=== PATIENT | male | born 1965 | race Two or more races ===

== ENCOUNTER 2022-01-24 17:01 | Inpatient (IN) | payer MEDICAID, OTHER ==
[~2022-01-24] VITALS: Ht 180.3 cm; Wt 77.9 kg
[2022-01-24] MEDS: POTASSIUM CHL 10MEQ/50ML 50 ML IV SCH (01:10)
[2022-01-24] MEDS ORDERED: KETOROLAC TROMETH 30 MG/ML 1ML VIAL IV ONE (20:00)
[2022-01-24 20:29] LABS: Basophils # (auto) 0.1 10 ^3/uL (0-0.2); Monocytes # (auto) 0.4 10 ^3/uL (0-1.3); Neutrophils # (auto) 3.7 10 ^3/uL (1.6-8.6); White Blood Cell 5.1 10^3/uL (4.4-10.8)
[2022-01-24 20:30] LABS: Basophils % (auto) 1.5 % (0.0-2.0); Eosinophils # (auto) 0.1 10 ^3/uL (0-0.8); Eosinophils % (auto) 1.2 % (0.0-7.0); Hematocrit 30.5 % (41.0-53.0); Lymphocytes # (auto) 0.9 10 ^3/uL (0.4-5.4); Lymphocytes % (auto) 16.8 % (10.0-50.0); Mean Corpuscular Hemoglobin 24.5 pg (28.0-32.0); Mean Corpuscular Hgb Conc. 32.6 g/dL (32.0-36.0); Mean Corpuscular Volume 75.2 fL (80.0-100.0); Monocytes % (auto) 7.6 % (0.0-12.0); Neutrophils % (auto) 72.9 % (37.0-80.0); Red Blood Cells 4.06 10^6/uL (4.5-5.90); Red Cell Distribution Width 16.7 % (11.8-14.3)
[2022-01-24 20:41] LABS: Albumin 3.3 g/dL (3.4-5.0); Calcium 7.6 mg/dL (8.5-10.1); Potassium 3.1 mmol/L (3.5-5.1)
[2022-01-24 20:47] LABS: BUN/Creatinine Ratio 12.8; Bilirubin, Total 0.6 mg/dL (0.2-1.0); Total Protein 6.6 g/dL (6.4-8.2)
[2022-01-24] MEDS ORDERED: LACTATED RINGER'S 1,000 ML IV ONE (22:15)
[2022-01-24] MEDS ORDERED: POTASSIUM EFFERVESENT TAB 25 MEQ PO ONE (22:15)
[2022-01-24] MEDS ORDERED: POTASSIUM CHL 10MEQ/50ML 50 ML IV SCH (22:15)
[2022-01-24] MEDS ORDERED: ONDANSETRON HCL 4 MG/2 ML VIAL IV PRN (23:15)
[2022-01-24] MEDS ORDERED: MORPHINE SULFATE 4 MG/ML SYR/VIAL IV PRN (23:15)
[2022-01-24] MEDS ORDERED: ACETAMINOPHEN 325 MG TAB PO PRN (23:15)
[2022-01-24] MEDS ORDERED: DOCUSATE SOD 100 MG CAP PO PRN (23:15)
[2022-01-24] MEDS ORDERED: TEMAZEPAM 15 MG CAP PO PRN (23:45)
[2022-01-25] MEDS ORDERED: hydrALAZINE HCL 20 MG/ML VL IV PRN ×2 (00:30)
[2022-01-25] MEDS: POTASSIUM CHL 10MEQ/50ML 50 ML IV SCH ×6 (01:10→05:37)
[2022-01-25] MEDS: SODIUM CHLORIDE 0.9% 1,000 ML IV SCH ×3 (01:27→15:55)
[2022-01-25 05:00] VITALS: BP 156/91
[2022-01-25] MEDS ORDERED: ESCI-28 PO (05:19)
[2022-01-25] MEDS ORDERED: ALLO300T2 PO (05:19)
[2022-01-25] MEDS ORDERED: TRAZ1TAB12 PO (05:19)
[2022-01-25] MEDS ORDERED: AMLO-489 PO (05:19)
[2022-01-25] MEDS ORDERED: LEV25T PO (05:19)
[2022-01-25] MEDS ORDERED: ARIP10TA29 PO (05:22)
[2022-01-25 06:24] LABS: Basophils # (auto) 0.1 10 ^3/uL (0-0.2); Eosinophils # (auto) 0.2 10 ^3/uL (0-0.8); Hemoglobin 10.7 g/dL (13.5-17.5); Lymphocytes # (auto) 1.6 10 ^3/uL (0.4-5.4); Monocytes # (auto) 0.4 10 ^3/uL (0-1.3); Neutrophils # (auto) 2.7 10 ^3/uL (1.6-8.6); Neutrophils % (auto) 54.1 % (37.0-80.0); Nucleated Red Blood Cells % 0.1 %; Red Cell Distribution Width 16.9 % (11.8-14.3)
[2022-01-25 06:26] LABS: Basophils % (auto) 1.3 % (0.0-2.0); Eosinophils % (auto) 4.1 % (0.0-7.0); Lymphocytes % (auto) 31.5 % (10.0-50.0); Mean Corpuscular Hemoglobin 24.2 pg (28.0-32.0); Mean Corpuscular Hgb Conc. 32.4 g/dL (32.0-36.0); Mean Corpuscular Volume 74.7 fL (80.0-100.0); Red Blood Cells 4.42 10^6/uL (4.5-5.90)
[2022-01-25 06:37] LABS: Albumin 3.4 g/dL (3.4-5.0); Calcium 8.6 mg/dL (8.5-10.1); Potassium 3.5 mmol/L (3.5-5.1)
[2022-01-25 06:41] LABS: BUN/Creatinine Ratio 10.6; Bilirubin, Total 0.7 mg/dL (0.2-1.0); Total Protein 7.2 g/dL (6.4-8.2)
[2022-01-25 08:54] VITALS: BP 138/83
[2022-01-25] MEDS: amLODIPine BESYLATE 5 MG TAB PO SCH (11:11)
[2022-01-25] MEDS: HYDROcodone-ACET 5/325MG TAB PO PRN ×2 (11:12→20:19)
[2022-01-25] MEDS: FAMOTIDINE 20 MG TAB PO SCH (11:13)
[2022-01-25 13:00] VITALS: BP 140/84
[2022-01-25 17:00] VITALS: BP 153/96
[2022-01-25] MEDS ORDERED: LORazepam 2MG/ML-1ML VIAL IV PRN (20:00)
[2022-01-25 22:00] VITALS: BP 142/94
[2022-01-26 00:12] VITALS: BP_SYST 123; BP_SYST 125; BP_SYST 127; BP_DIAS 79; BP_DIAS 89; BP_DIAS 94
[2022-01-26] MEDS: SODIUM CHLORIDE 0.9% 1,000 ML IV SCH ×2 (00:15→08:35)
[2022-01-26 05:00] VITALS: BP_SYST 121; BP_SYST 122; BP_SYST 144; BP_DIAS 77; BP_DIAS 84; BP_DIAS 89
[2022-01-26 09:00] VITALS: BP_SYST 135; BP_SYST 93; BP_DIAS 63; BP_DIAS 81; BP_DIAS 82
[2022-01-26] MEDS: amLODIPine BESYLATE 5 MG TAB PO SCH (10:00)
[2022-01-26] MEDS: FAMOTIDINE 20 MG TAB PO SCH (10:41)
[2022-01-26] MEDS ORDERED: MIDO5TAB22 PO (11:05)
[2022-01-26] MEDS ORDERED: MIDODRINE HCL 10 MG TAB PO SCH (11:19)
[2022-01-26 13:00] VITALS: BP_SYST 119; BP_SYST 156; BP_SYST 158; BP_DIAS 85; BP_DIAS 90
[2022-01-26 13:26] LABS: Folate (Folic Acid) 9.19 ng/mL (5.38-24)
[2022-01-26 15:20] VITALS: BP 135/82
[2022-01-26 16:00] VITALS: BP_SYST 131; BP_SYST 136; BP_SYST 159; BP_DIAS 92; BP_DIAS 98; BP_DIAS 99
== END 2022-01-26 16:30 | disposition home health service (06) | DRG 204 ==
LOC: ER 17:03 → TELE 23:14 → TELE-WESTW 23:48
PROVIDERS: ADMIT Internal Medicine; ATTEND Internal Medicine
DX: I95.1 Orthostatic hypotension (principal); E11.42 Type 2 diabetes mellitus with diabetic polyneuropathy; E88.09 Other disorders of plasma-protein metabolism, not elsewhere classified; E87.6 Hypokalemia; E03.9 Hypothyroidism, unspecified; W18.2XXA Fall in (into) shower or empty bathtub, initial encounter; R00.1 Bradycardia, unspecified; F32.A Depression, unspecified; F12.90 Cannabis use, unspecified, uncomplicated; F17.200 Nicotine dependence, unspecified, uncomplicated; Z20.822 Contact with and (suspected) exposure to COVID-19; F43.10 Post-traumatic stress disorder, unspecified; I10 Essential (primary) hypertension; I45.9 Conduction disorder, unspecified; F41.8 Other specified anxiety disorders; G89.29 Other chronic pain; M10.9 Gout, unspecified; M19.90 Unspecified osteoarthritis, unspecified site; M54.9 Dorsalgia, unspecified; M54.50 Low back pain, unspecified; Y92.009 Unspecified place in unspecified non-institutional (private) residence as the place of occurrence of the external cause; Y93.E1 Activity, personal bathing and showering; Z80.42 Family history of malignant neoplasm of prostate; Z81.8 Family history of other mental and behavioral disorders; Z82.3 Family history of stroke; Z82.49 Family history of ischemic heart disease and other diseases of the circulatory system; Z83.3 Family history of diabetes mellitus; Z98.84 Bariatric surgery status
CPT/HCPCS: 36415; 70450; 70551; 71045; 72125; 72170; 80053; 82607; 82746; 83036; 83735; 83880; 84443; 84484; 85025; 93005; 93306; 93886; 95819; 96361; 96374; 97163; G0378; J1885

== ENCOUNTER 2025-01-12 10:24 | Inpatient (IN) | payer MEDICAID ==
[~2025-01-12] VITALS: Ht 180.3 cm; Wt 65.0 kg
[~2025-01-12 10:24] MED LIST: ALLO300T2 PO; AUG875T PO; LEV25T PO; MIDO5TAB22 PO; MIRT-93 PO; QUET1TAB11 PO; TRAZ1TAB12 PO
--- NOTE | 2025-01-12 10:40 | ED.PDOC ---
History of Present Illness HPI Comments 59-year-old male who comes in with chief complaint of generalized weakness for the past five days. The patient was also experiencing some dizziness. The patient fell on the ground over the last couple of days and according to the paramedics, there was an EMS response yesterday and the day before. Upon arriv al, the patient was just very weak and not complaining of any chest pain, shortness for breath, nausea or vomiting. EN route the patient's Accu-Chek was 93. He is stating that he has no appetite. He denies any abdominal pain. Upon arrival, the patient's Accu-Chek is 69. Chief Complaint: General Weakness Time Seen by MD: 10:28 Primary Care Provider: JENNIFER Reviewed Notes: Nurses Notes, Clinical Research Administrator Notes, Medications, Allergies (No allergies to medications) Allergies: Coded Allergies: NO KNOWN ALLERGIES (Unverified , 01/24/22) Home Meds Active Scripts Mirtazapine (Remeron) 15 Mg Tab, 1 TAB PO QPM, #30 TAB 1 Refill Prov:KOBY CHAPMAN MD 02/03/24 Amoxicillin & Pot Clavulanate (AUGMENTIN TABLET) 875 Mg Tb, 875 MG PO BID for 7 Days, #14 TAB Prov:KOBY CHAPMAN MD 02/01/24 Quetiapine Fumerate (QUETIAPINE FUMARATE) 25 Mg Tab, 25 MG PO HS for 14 Days, #14 TAB 1 Refill Prov:KOBY CHAPMAN MD 02/01/24 Midodrine HCl (Midodrine Hydrochloride) 5 Mg Tab, 5 MG PO BID for 30 Days, #60 TAB Prov:KOBY CHAPMAN MD 01/26/22 Reported Medications Trazodone Hcl (Trazodone Hcl) 150 Mg Tab, 1 TAB PO for insomnia per pt 01/25/22 Allopurinol (Allopurinol) 300 Mg Tab, 1 TAB PO DAILYPRN for gout 01/25/22 Levothyroxine Sodium (Levothyroxine Sodium) 25 Mcg Tab, 1 TAB PO DAILYPRN 01/25/22 Information Source: Patient, Emergency Med Personnel Mode of Arrival: EMS Severity: Moderate Timing: Days Duration: Since onset Prehospital treatment: Accucheck (93) Associated signs and symptoms Generalized dizziness with weakness and decreased appetite. Past Medical History PAST MEDICAL HISTORY: Anxiety, Depression, Gout, HTN Family History Family History: Family hx of Cancer Social History Smoker: Non-Smoker Alcohol: Denies ETOH Use Drugs: Marijuana Lives In: Home Constitutional: reports: weakness; denies: chills, diaphoresis, fatigue, fever, malaise, sweats, others EENTM: denies: blurred vision, double vision, ear bleeding, ear discharge, ear drainage, ear pain, ear ringing, eye pain, eye redness, hearing loss, mouth pain, mouth swelling, nasal discharge, nose bleeding, nose congestion, nose pain, photophobia, tearing, throat pain, throat swelling, voice changes, others Respiratory: denies: cough, hemoptysis, orthopnea, SOB at rest, shortness of breath, SOB with excertion, stridor, wheezing, others Cardiovascular: denies: chest pain, dizzy spells, diaphoresis, Dyspnea on exertion, edema, irregular heart beat, left arm pain, lightheadedness, palpitations, PND, syncope, others Gastrointestinal: denies: abdomen distended, abdominal pain, blood streaked bowels, constipated, diarrhea, dysphagia, difficulty swallowing, hematemesis, melena, nausea, poor appetite, poor fluid intake, rectal bleeding, rectal pain, vomiting, others Genitourinary: denies: burning, dysuria, flank pain, frequency, hematuria, incontinence, penile discharge, penile sore, pain, testicle pain, testicle swelling, urgency, others Neurological: reports: dizziness; denies: fainting, headache, left sided numbness, left sided weakness, numbness, paresthesia, pre-existing deficit, right sided numbness, right sided weakness, seizure, speech problems, tingling, tremors, weakness, others Musculoskeletal: denies: back pain, gout, joint pain, joint swelling, muscle pain, muscle stiffness, neck pain, others Integumetry: denies: bruises, change in color, change in hair/nails, dryness, laceration, lesions, lumps, rash, wounds, others Allergic/Immunocompromised: denies: Difficulty Healing, Frequent Infections, Hives, Itching, others Hematologic/Lymphatic: denies: anemia, blood clots, easy bleeding, easy bruising, swollen glands, others Endocrine: denies: excessive hunger, excessive sweating, excessive thirst, excessive urination, flushing, intolerance to cold, intolerance to heat, unexplained weight gain, unexplained weight loss, others Psychiatric: denies: anxiety, bipolar disorder, depression, hopeless, panic disorder, schizophrenia, sleepless, suicidal, others Physical Exam General Appearance: Moderate Distress, Thin HEENT: Pale Conjuntivae (L), Pale Conjuntivae (R), Pharynx Normal, TMs Normal Neck: Full Range of Motion, Non-Tender, Normal, Normal Inspection Respiratory: Chest Non-Tender, Lungs Clear, No Accessory Muscle Use, No Re spiratory Distress, Normal Breath Sounds Cardiovascular: No Edema, No JVD, No Murmur, No Gallop, Normal Peripheral Pulses, Regular Rate/Rhythm Breast Exam: Deferred Gastrointestinal: No Organomegaly, Non Tender, No Pulsatile Mass, Normal Bowel Sounds, Soft Genitalia: Deferred Pelvic: Deferred Rectal: Deferred Extremities: No calf tenderness, Normal capillary refill, No pedal edema Musculoskeletal : Apperance: Normal Neurologic: Alert, pantograph watcher II-XII nml as Tested, Motor Weakness, Normal Affect, Normal Mood, No Sensory Deficits Cerebellar Function: Normal Reflexes: Normal Skin: Dry, Pallor, Warm Lymphatic: No Adenopathy Was a procedure done? Was a procedure done?: No Differential Dx Considerations may include: Generalized weakness, CVA, dehydration, UTI, failure to thrive X-Ray, Labs, Meds, VS Vital Signs Date Time Temp Pulse Resp B/P (MAP) Pulse Ox O2 Delivery O2 Flow Rate FiO2 01/12/25 15:00 62 14 156/81 (106) 100 01/12/25 11:58 58 12 159/88 (111) 100 01/12/25 10:37 97.2 64 16 150/92 (111) 100 Lab Test 01/12/25 10:54 01/12/25 10:50 Range/Units White Blood Count 3.3 L 4.4-10.8 10^3/uL Red Blood Count 4.04 L 4.5-5.90 10^6/uL Hemoglobin 12.2 L 13.5-17.5 g/dL Hematocrit 37.1 L 41.0-53.0 % Mean Corpuscular Volume 91.8 80.0-100.0 fL Mean Corpuscular Hemoglobin 30.2 28.0-32.0 pg Mean Corpuscular Hemoglobin Concent 32.8 32.0-36.0 g/dL Red Cell Distribution Width 17.4 H 11.8-14.3 % Platelet Count 109 L 140-450 10^3/uL Mean Platelet Volume 7.4 6.9-10.8 fL Neutrophils (%) (Auto) 66.2 37.0-80.0 % Lymphocytes (%) (Auto) 24.9 10.0-50.0 % Monocytes (%) (Auto) 6.2 0.0-12.0 % Eosinophils (%) (Auto) 2.3 0.0-7.0 % Basophils (%) (Auto) 0.4 0.0-2.0 % Neutrophils # (Auto) 2.2 1.6-8.6 10 ^3/uL Lymphocytes # (Auto) 0.8 0.4-5.4 10 ^3/uL Monocytes # (Auto) 0.2 0-1.3 10 ^3/uL Eosinophils # (Auto) 0.1 0-0.8 10 ^3/uL Basophils # (Auto) 0 0-0.2 10 ^3/uL Nucleated Red Blood Cells 0.2 % Sodium Level 141 136-145 mmol/L Potassium Level 3.3 L 3.5-5.1 mmol/L Chloride Level 103 98-107 mmol/L Carbon Dioxide Level 25 20-31 mmol/L Anion Gap 13 5-15 Blood Urea Nitrogen 20 9-23 mg/dL Creatinine 1.53 H 0.700-1.30 mg/dL Glomerular Filtration Rate Calc 52 >90 mL/min BUN/Creatinine Ratio 13.1 10.0-20.0 Serum Glucose 67 L 74-106 mg/dL Calcium Level 9.2 8.7-10.4 mg/dL Total Bilirubin 1.0 0.2-1.0 mg/dL Aspartate Amino Transferase (AST) 342 H 13-40 U/L Alanine Aminotransferase (ALT) 50 H 7-40 U/L Alkaline Phosphatase 57 46-116 U/L Total Protein 6.1 5.7-8.2 g/dL Albumin 3.4 3.2-4.8 g/dL SARS-CoV-2 Antigen (Rapid) Negative NEGATIVE Current Medications Medications (Trade) Dose Ordered Sig/Daphnie Route Start Time Stop Time Status Last Admin Sodium Chloride 1,000 ml @ 1,000 mls/hr Q1H ONCE IV 01/12/25 10:45 2/28/25 11:44 DC 01/12/25 14:32 IV Hep-Lock was established. The patient was given a 1 L bolus of normal saline. The Accu-Chek is [address] scan of the abdomen and pelvis shows: IMPRESSION: 1. No CT evidence of acute abnormality in the abdomen and pelvis. 2. Mild body wall edema. At this time the CBC is within normal limits At this time the patient will be admitted to the hospitalist. The COVID test is negative. The patient was leukopenia and we feel that this also needs to be worked up secondary to the patient's weakness and failure to thrive Images Reviewed?: Images reviewed and evaluated by me Time of 1ST Reevaluation: 10:54 Reevaluation 1ST: Improved Patient Education/Counseling: Diagnosis, Treatment, Prognosis Family Education/Counseling: No Family Present Departure 1 Departure Time of Disposition: 10:54 Impression: Primary Impression: Failure to thrive Qualified Codes: R62.7 - Adult failure to thrive Disposition: 09 ADMITTED INPATIENT Admit to: [facility] [place] Condition: Fair Critical Care Note Critical Care Time?: No Stability Stability form required: Yes Unstable for transfer: Telemetry monitoring (Telemetry monitoring required), ED Physician Assesment (Clinical assesment) Heart Score Heart Score: Heart Score Response (Comments) Value History N/A 0 EKG N/A 0 Age N/A 0 Risk Factors N/A 0 Troponin N/A 0 Total 0 CURTIS MCRAE MD Jan 12, 2025 10:40
[2025-01-12 11:15] LABS: Basophils # (auto) 0 10 ^3/uL (0-0.2); Basophils % (auto) 0.4 % (0.0-2.0); Eosinophils # (auto) 0.1 10 ^3/uL (0-0.8); Eosinophils % (auto) 2.3 % (0.0-7.0); Hematocrit 37.1 % (41.0-53.0); Hemoglobin 12.2 g/dL (13.5-17.5); Lymphocytes # (auto) 0.8 10 ^3/uL (0.4-5.4); Lymphocytes % (auto) 24.9 % (10.0-50.0); Mean Corpuscular Hemoglobin 30.2 pg (28.0-32.0); Mean Corpuscular Hgb Conc. 32.8 g/dL (32.0-36.0); Mean Corpuscular Volume 91.8 fL (80.0-100.0); Monocytes # (auto) 0.2 10 ^3/uL (0-1.3); Monocytes % (auto) 6.2 % (0.0-12.0); Neutrophils # (auto) 2.2 10 ^3/uL (1.6-8.6); Neutrophils % (auto) 66.2 % (37.0-80.0); Nucleated Red Blood Cells % 0.2 %; Platelet Count (auto) 109 10^3/uL (140-450); Red Blood Cells 4.04 10^6/uL (4.5-5.90); Red Cell Distribution Width 17.4 % (11.8-14.3); White Blood Cell 3.3 10^3/uL (4.4-10.8)
[2025-01-12 11:42] LABS: Albumin 3.4 g/dL (3.2-4.8); Alkaline Phosphatase 57 U/L (46-116); Anion Gap 13 (5-15); BUN/Creatinine Ratio 13.1 (10.0-20.0); Blood Urea Nitrogen 20 mg/dL (9-23); Calcium 9.2 mg/dL (8.7-10.4); Carbon Dioxide 25 mmol/L (20-31); Chloride 103 mmol/L (98-107); Sodium 141 mmol/L (136-145); Total Protein 6.1 g/dL (5.7-8.2)
--- NOTE | 2025-01-12 11:51 | DVH ---
Procedure: CT CT AB PEL WO CON-NO ORAL OR IV 01/12/2025 11:01 AM Indication: weakness Comparison Study: None Technique: Axial images were obtained and reformatted in coronal and sagittal planes. All CT scans at this medical facility are performed using dose modulation techniques as appropriate t o a performed exam including the following: Automated exposure control was utilized; adjustment of th e MA and/or KV according to patient size; and use of iterative reconstruction technique. CT Dose: CTDI volume is 5. mGy. Dose-length product is 280 mGy*cm FINDINGS: Lower Chest: Base of the lungs are clear. Suggestion of anemia. Hepatobiliary: Unremarkable. Spleen: Unremarkable. Pancreas: Unremarkable. Adrenal Glands: Unremarkable. tract: The kidneys are normal in size bilaterally without hydronephrosis or nephrolithiasis. A 4.5 cm right renal cyst noted. The urinary bladder is unremarkable. GI tract: Changes of gastric bypass surgery noted. No evidence of small bowel obstruction. The large bowel is unremarkable. The appendix is not visualized. No inflammatory change is noted in the right lower quadrant. Lymphatics: No mesenteric, retroperitoneal or periportal lymphadenopathy. Vasculature: The abdominal aorta is normal in in caliber. Pelvic Organs: Unremarkable Bones/soft tissues: No acute abnormality. Multilevel degenerative changes of the lumbar spine noted. Mild diffuse subcutaneous edema. Moderate bilateral hip joint osteoarthritis. Other: None. IMPRESSION: 1. No CT evidence of acute abnormality in the abdomen and pelvis. 2. Mild body wall edema.
[2025-01-12 11:55] LABS: Alanine Aminotransferase 50 U/L (7-40); Aspartate Aminotransferase 342 U/L (13-40); Glucose 67 mg/dL (74-106); Potassium 3.3 mmol/L (3.5-5.1)
[2025-01-12] MEDS: SODIUM CHLORIDE 0.9% 1,000 ML IV ONE (14:32)
[2025-01-12 15:12] LABS: COVID19 ANTIGEN SOFIA FIA NEGATIVE (NEGATIVE)
[2025-01-12 15:57] VITALS: PULSE 62; RESP 12; O2SAT 100
[2025-01-12] MEDS ORDERED: POTASSIUM CHLORIDE 40 MEQ in D5W 5% 1,000 ML IV SCH (16:15)
--- NOTE | 2025-01-12 16:41 | DVH ---
EXAM: CT HEAD WITHOUT CONTRAST HISTORY: aloc COMPARISON: CT HEAD WITHOUT CONTRAST on DOS: 01/28/24, HEAD WITHOUT CONTRAST on DOS: 01/24/22 TECHNIQUE: Axial images of the head were obtained and reformatted in coronal and sagittal planes. All CT scans at this medical facility are performed using dose modulation techniques as appropriate t o a performed exam including the following: Automated exposure control was utilized; adjustment of th e MA and/or KV according to patient size; and use of iterative reconstruction technique. CT Dose: CTDI volume is 55 mGy. Dose-length product is 886 mGy*cm FINDINGS: There is no evidence of acute intracranial hemorrhage, mass, mass effect midline shift. There is no h ydrocephalus or extra-axial fluid collection. Blue-white matter differentiation is maintained. The visualized paranasal sinuses and mastoid air cells are clear. The calvarium is intact. IMPRESSION: 1. No acute intracranial process. HS:Y
[2025-01-12] MEDS ORDERED: ONDANSETRON HCL 4 MG/2 ML VIAL IV PRN (18:00)
[2025-01-12] MEDS ORDERED: NITROGLYCERIN 0.4 MG SL TAB SL PRN (18:00)
[2025-01-12] MEDS ORDERED: HYDROcodone-ACET 5/325MG TAB PO PRN (18:00)
[2025-01-12] MEDS ORDERED: ACETAMINOPHEN 325 MG TAB PO PRN (18:00)
[2025-01-12] MEDS ORDERED: MORPHINE SULFATE INJ 2 MG/ml SYRG IV PRN ×2 (18:00)
[2025-01-12] MEDS: SODIUM CHLORIDE 0.9% 1,000 ML IV SCH (19:18)
[2025-01-12] MEDS: POTASSIUM CHL 20MEQ/100ML 100 ML IV ONE (19:18)
[2025-01-12 19:30] VITALS: PULSE 59; RESP 18; O2SAT 99
--- NOTE | 2025-01-12 21:05 | DVHINCON2 ---
Date of Service if different f: Jan 12, 2025 Time of Service: 20:43 Consultation ([facility]) Consulting Physician: ALEK CONCEPCION MD Labs Laboratory Tests Test 01/12/25 10:50 01/12/25 10:54 SARS-CoV-2 Antigen (Rapid) Negative (NEGATIVE) White Blood Count 3.3 10^3/uL (4.4-10.8) Red Blood Count 4.04 10^6/uL (4.5-5.90) Hemoglobin 12.2 g/dL (13.5-17.5) Hematocrit 37.1 % (41.0-53.0) Mean Corpuscular Volume 91.8 fL (80.0-100.0) Mean Corpuscular Hemoglobin 30.2 pg (28.0-32.0) Mean Corpuscular Hemoglobin Concent 32.8 g/dL (32.0-36.0) Red Cell Distribution Width 17.4 % (11.8-14.3) Platelet Count 109 10^3/uL (140-450) Mean Platelet Volume 7.4 fL (6.9-10.8) Neutrophils (%) (Auto) 66.2 % (37.0-80.0) Lymphocytes (%) (Auto) 24.9 % (10.0-50.0) Monocytes (%) (Auto) 6.2 % (0.0-12.0) Eosinophils (%) (Auto) 2.3 % (0.0-7.0) Basophils (%) (Auto) 0.4 % (0.0-2.0) Neutrophils # (Auto) 2.2 10 ^3/uL (1.6-8.6) Lymphocytes # (Auto) 0.8 10 ^3/uL (0.4-5.4) Monocytes # (Auto) 0.2 10 ^3/uL (0-1.3) Eosinophils # (Auto) 0.1 10 ^3/uL (0-0.8) Basophils # (Auto) 0 10 ^3/uL (0-0.2) Nucleated Red Blood Cells 0.2 % Sodium Level 141 mmol/L (136-145) Potassium Level 3.3 mmol/L (3.5-5.1) Chloride Level 103 mmol/L (98-107) Carbon Dioxide Level 25 mmol/L (20-31) Anion Gap 13 (5-15) Blood Urea Nitrogen 20 mg/dL (9-23) Creatinine 1.53 mg/dL (0.700-1.30) Glomerular Filtration Rate Calc 52 mL/min (>90) BUN/Creatinine Ratio 13.1 (10.0-20.0) Serum Glucose 67 mg/dL (74-106) Calcium Level 9.2 mg/dL (8.7-10.4) Total Bilirubin 1.0 mg/dL (0.2-1.0) Aspartate Amino Transf (AST/SGOT) 342 U/L (13-40) Alanine Aminotransferase (ALT/SGPT) 50 U/L (7-40) Alkaline Phosphatase 57 U/L (46-116) Total Protein 6.1 g/dL (5.7-8.2) Albumin 3.4 g/dL (3.2-4.8) Appearance: Stated age Psychomotor activity: WNL Behavioral: Cooperative Eye contact: Appropriate Speech: WNL Affect: Appropriate, Mood Congruent Mood: Euthymic Thought processes: Linear/Goal-directed Thought content: WNL Suicidal ideations: Absent Homicidal ideations: Absent Orientation: Person, Place, Time Memory intact: Recent Intellect: Average Abstractability: WNL Concentration: Adequate Attention: Adequate Judgement: WNL Insight: Fair Vitals Vital Signs Date Time Temp Pulse Resp B/P (MAP) Pulse Ox O2 Delivery O2 Flow Rate FiO2 01/12/25 20:00 59 01/12/25 19:30 18 99 Nasal Cannula* 2 28 01/12/25 19:30 98.5 161/88 (112) 98.5 Current medications Current Medications Medications Dose Ordered Sig/Daphnie Route Start Time Stop Time Status Last Admin Dose Admin Sodium Chloride 1,000 ml @ 120 mls/hr Q8H20M IV 01/12/25 18:00 01/12/25 19:18 120 MLS/HR Acetaminophen/ Hydrocodone Bitart 1 tab Q4HP PRN PO 01/12/25 18:00 Ondansetron HCl 4 mg Q4HP PRN IV 01/12/25 18:00 Enoxaparin Sodium 40 mg DAILY SC 01/13/25 10:00 Acetaminophen 650 mg Q6HP PRN PO 01/12/25 18:00 Morphine Sulfate 2 mg Q4HPRN PRN IV 01/12/25 18:00 Nitroglycerin 0.4 mg Q5MINP PRN SL 01/12/25 18:00 Morphine Sulfate 2 mg Q30M PRN IV 01/12/25 18:00 Hydralazine HCl 10 mg Q6HP PRN IV 01/12/25 20:15 Treatment plan discussed: With staff Medication adjusted: Yes Labs ordered: No Psychotherapy provided: No Type: Voluntary History of Present Illness Reason for Consult : psychiatric evaluation for depression PSYCHIATRIST HPI: The patient was seen and evaluated at [facility] ED via telepsychiatry platform. 59 yr old male reported he suffered from depression his whole life. He reported he has been doing well on his current medications which are vraylar and wellbutrin. He reported taking these regularly and seeing his outpatient psychiatrist on a monthly basis. He noted that he lives by himself and has a caregiver who helps him. He stated his mood has been good lately. he denied having SI/HI/AVH. Past Psychiatric History : Diagnosed with severe depression and anxiety. One suicide attempt several years ago. No past hospitalizations. Current psych medications: Welbutrin 300mg Vraylar 3mg qam. NKDA Past Medical History : orthostatic hypotension, hypothyroid Substance use: Denied use of alcohol or other substances Social History : Lives in [place] by self in apartment. Has a caregiver. for 7.5 yrs 13 years ago. No children. Worked in past but unemployed. DIAGNOSIS: Major Depressive Disorder Formulation: This 59 yr old male appears to suffer from major depressive disorder which has been well controlled on Wellbutrin and Vraylar. I recommend continuing on those medications. Plan: 1. Safety. The patient is a low risk for self harm and may be managed as an outpatient. 2. Legal-voluntary. 3. Medications: continue Wellbutrin 300mg qam Vraylar 3mg qam (if vraylar is unavailable, may substitute risperdal 1mg qhs) 4. Case discussed with ED Physician Ivan Sawyer. 5. Please recontact psychiatry for further follow up or reevaluation. Assessment/Diagnosis/Plan Reviewed: Labs, Medications, Previous Orders ALEK CONCEPCION MD Jan 12, 2025 20:44
[2025-01-12 21:24] LABS: Urine Bacteria None Seen /hpf (None Seen)
[2025-01-12 21:51] LABS: Amphetamine Screen, Urine Neg (NEGATIVE); Benzodiazephine Screen, Urine Neg (NEGATIVE)
[2025-01-12 21:52] LABS: Urine Blood Negative /uL (Negative); Urine Clarity Clear (Clear); Urine Color Yellow (Yellow); Urine Hyaline Cast FEW /lpf (0 - 2); Urine Protein, UAD Negative (Negative); Urine Specific Gravity 1.016 (1.001-1.035); Urine Squamous Epithelial Cell FEW /hpf (<5); Urine Urobilinogen 2 mg/dL (Negative); Urine WBC < 1 /HPF (0-3)
[2025-01-12 21:58] LABS: Barbiturate Scree,Urine Neg (NEGATIVE); Cannabinoid Screen, Urine Neg (NEGATIVE); Cocaine Screen, Urine Neg (NEGATIVE); Opiate Scree,Urine Neg (NEGATIVE); Phencyclidine Screen, Urine Neg (NEGATIVE)
[2025-01-12 22:36] VITALS: BP 160/92; PULSE 59; RESP 17; TEMP 97.5; O2SAT 100
[2025-01-12 22:43] VITALS: PULSE 59; RESP 17; O2SAT 100
[2025-01-12] MEDS ORDERED: TEMA30CA PO (23:29)
[2025-01-12] MEDS ORDERED: CARI1CAP4 PO (23:29)
[2025-01-13] VITALS (8 sets, daily range): BP systolic 122–169; BP diastolic 53–97; PULSE 57–76; RESP 16–19; TEMP 97.3–98.7; O2SAT 97–100
--- NOTE | 2025-01-13 00:57 | DVHHP2 ---
Admitting Diagnosis: Failure to Thrive History of Present Illness History Source: Patient Exam Limitations: No limitations HPI Mr. Donaldo Green is a 59 yo male with known history of major depression who presents with a chief complaint of generalized weakness and poor appetite. Eliud maldonado report he has been in bed for the past 5 days due to generalized weakness with poor appetite. Patient denies any suicidal ideation, ideation of harm to others. Patient reports he has a caregiver and he has been compliant with his medication regimen. Patient admitted for further evaluation. Home Meds Reported Medications Cariprazine HCl (Vraylar) 6 Mg Cap, 6 MG PO, CAP 01/12/25 Temazepam (Temazepam) 30 Mg Cap, 1 CAP PO QPM, #30 CAP 1 Refill 01/12/25 Trazodone Hcl (Trazodone Hcl) 150 Mg Tab, 1 TAB PO for insomnia per pt 01/25/22 Allopurinol (Allopurinol) 300 Mg Tab, 1 TAB PO DAILYPRN for gout 01/25/22 Levothyroxine Sodium (Levothyroxine Sodium) 25 Mcg Tab, 1 TAB PO DAILYPRN 01/25/22 Past Medical History Cardiac: No pertinent Hx Pulmonary: No pertinent Hx Central Nervous System: No pertinent Hx GI: No pertinent Hx Hemotology/Oncology: No pertinent Hx Hepatobiliary: No pertinent Hx Psychiatric: Depression, Other (failure to thrive) Musculoskeletal: No pertinent Hx Rheumotologic: No pertinent Hx Infectious Disease: No peritnent Hx ENT: No pertinent Hx Renal/: No pertinent Hx Endocrine: No pertinent Hx Dermatology: No pertinent Hx Patient Family History: Cerebrovascular accident (CVA) FH: prostate cancer G8 FATHER Prostate carcinoma Smoker: No Hx (Negative) Alocohol: None Drugs: None Lives with: Alone Domestic Violence: Neg Review of Systems Constitutional: Weakness (generalized ), Other (poor appetite ) Ears, Nose, & Throat: No symptom reported Eyes: No symptom reported Pulmonary/Respiratory: No symptom reported Cardiovascular: No symptom reported Gastrointestinal: No symptom reported Genitourinary: No symptom reported Musculoskeletal: No symptom reported Skin: No symptom reported Psychiatric: No symptom reported Endocrine: No symptom reported Hemotologic/Lymphatic: No symptom reported H&P Exam Vital Signs Vital Signs Date Time Temp Pulse Resp B/P (MAP) Pulse Ox O2 Delivery O2 Flow Rate FiO2 01/12/25 22:36 97.5 59 17 160/92 (114) 100 97.5 01/12/25 19:30 Nasal Cannula* 2 General Appeara: Normal Appearance, Thin Head Exam: Normal inspection Neck Exam: Normal inspection, Non-tender, Normal alignment Eye Exam: bilateral eye Normal inspection, bilateral eye PERRL, bilateral eye EOMI Ear Exam: bilateral ear Auricle normal Nasal Exam: Normal inspection Mouth: Normal Inspection Pulmonary/Respiratory: Normal inspection, Normal breath sounds, Chest non- tender, Lungs clear Cardiovascular/Chest: Normal inspection, Regular rate, Normal Rhythm Peripheral Pulses: 2+ dorsalis pedis (R), 2+ dorsalis pedis (L), 2+ Radial (R), 2+ Radial (L) Abdominal Exam: Normal bowel sounds, Soft, No tenderness Rectal Exam: Deferred Back Exam: Normal inspection Male 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 Exam: Normal hearing, Normal speech, PERRL Neuro/Mental St: Alert, Oriented Appearance: Appropriate appearance, Appropriate insight Eye contact/ Speech: Cooperative, Good eye contact, Normal speech (soft spoken) Thoughts/Psych: Normal thought pattern Skin Exam: Normal inspection, Normal color, Warm/dry Labs/Xrays Labs Test 01/12/25 10:54 01/12/25 10:50 Range/Units White Blood Count 3.3 L 4.4-10.8 10^3/uL Red Blood Count 4.04 L 4.5-5.90 10^6/uL Hemoglobin 12.2 L 13.5-17.5 g/dL Hematocrit 37.1 L 41.0-53.0 % Mean Corpuscular Volume 91.8 80.0-100.0 fL Mean Corpuscular Hemoglobin 30.2 28.0-32.0 pg Mean Corpuscular Hemoglobin Concent 32.8 32.0-36.0 g/dL Red Cell Distribution Width 17.4 H 11.8-14.3 % Platelet Count 109 L 140-450 10^3/uL Mean Platelet Volume 7.4 6.9-10.8 fL Neutrophils (%) (Auto) 66.2 37.0-80.0 % Lymphocytes (%) (Auto) 24.9 10.0-50.0 % Monocytes (%) (Auto) 6.2 0.0-12.0 % Eosinophils (%) (Auto) 2.3 0.0-7.0 % Basophils (%) (Auto) 0.4 0.0-2.0 % Neutrophils # (Auto) 2.2 1.6-8.6 10 ^3/uL Lymphocytes # (Auto) 0.8 0.4-5.4 10 ^3/uL Monocytes # (Auto) 0.2 0-1.3 10 ^3/uL Eosinophils # (Auto) 0.1 0-0.8 10 ^3/uL Basophils # (Auto) 0 0-0.2 10 ^3/uL Nucleated Red Blood Cells 0.2 % Sodium Level 141 136-145 mmol/L Potassium Level 3.3 L 3.5-5.1 mmol/L Chloride Level 103 98-107 mmol/L Carbon Dioxide Level 25 20-31 mmol/L Anion Gap 13 5-15 Blood Urea Nitrogen 20 9-23 mg/dL Creatinine 1.53 H 0.700-1.30 mg/dL Glomerular Filtration Rate Calc 52 >90 mL/min BUN/Creatinine Ratio 13.1 10.0-20.0 Serum Glucose 67 L 74-106 mg/dL Calcium Level 9.2 8.7-10.4 mg/dL Total Bilirubin 1.0 0.2-1.0 mg/dL Aspartate Amino Transferase (AST) 342 H 13-40 U/L Alanine Aminotransferase (ALT) 50 H 7-40 U/L Alkaline Phosphatase 57 46-116 U/L Total Protein 6.1 5.7-8.2 g/dL Albumin 3.4 3.2-4.8 g/dL Urine Color Yellow Yellow Urine Clarity Clear Clear Urine pH 6.0 5.0-9.0 Urine Specific [place] 1.016 1.001-1.035 Urine Protein Negative Negative Urine Ketones 1+ H Negative Urine Blood Negative Negative /uL Urine Nitrite Negative Negative Urine Bilirubin Negative Negative Urine Urobilinogen 2 H Negative mg/dL Urine Leukocyte Esterase Negative Negative /uL Urine RBC 1 0 - 3 /hpf Urine Microscopic WBC < 1 0-3 /HPF Urine Squamous Epithelial Cells Few <5 /hpf Urine Bacteria None seen None Seen /hpf Urine Hyaline Casts Few 0 - 2 /lpf Urine Glucose Normal Normal mg/dL Urine Opiates Screen Neg NEGATIVE Urine Fentanyl Screen Neg NEGATIVE Urine Barbiturates Screen Neg NEGATIVE Urine Phencyclidine Screen Neg NEGATIVE Urine Amphetamines Screen Neg NEGATIVE Urine Benzodiazepines Screen Neg NEGATIVE Urine Cocaine Screen Neg NEGATIVE Urine Cannabinoids Screen Neg NEGATIVE SARS-CoV-2 Antigen (Rapid) Negative NEGATIVE Assessment/Plan Problem List: (1) Failure to thrive (2) Depression Plan This is a 59 yo male with known history of depression who presents to the hospital with generalized weakness, poor appetite. Patient found to have 1. Failure to Thrive 2. Major depression Plan Admit telemetry unit Tele psych consultation Swallow evaluation DVT ppx Lovenox Urinalysis, UDS Dietary consultation Discussed all above with patient who verbalizes agreement and understanding of care plan. All questions were answered. Discussed assessment and care plan with supervising/admitting MD. Plan discussed with: Patient, Other Code Visit Code Visit Total Time (mins): 45 Additional Comments Additional Comments Additional Comments Patient was seen and evaluated by me. I agree with the assessment and plan as outlined by my nurse practitioner. ELIAS COBB Jan 13, 2025 00:57 KOBY CHAPMAN MD Jan 13, 2025 15:38
[2025-01-13] MEDS: hydrALAZINE HCL 20 MG/ML VL IV PRN (01:11)
[2025-01-13] MEDS: ENOXAPARIN SOD 40 MG/0.4 ML SYRINGE SC SCH (09:54)
--- NOTE | 2025-01-13 18:42 | DVHINCON2 ---
Date of service: Jan 13, [address] Rodriguez Reason for Consultation Decreased appetite History of Present Illness Mr. Donaldo Green is a 59 yo male with known history of major depression who presents with a chief complaint of generalized weakness and poor appetite. Patient report he has been in bed for the past 5 days due to generalized weakness with poor appetite. Patient denies any suicidal ideation, ideation of harm to others. Patient reports he has a caregiver and he has been compliant with his medication regimen. Patient admitted for further evaluation. Patient was evaluated by psych consultation in medical treatment has been recommended including Wellbutrin and Risperdal GI consult was consulted because of poor appetite Patient also has mild chronic elevation in liver enzymes, previous hepatitis profile was negative Past Medical History Morbid obesity Major depression Past Surgical History Gastric bypass Family History: Cerebrovascular accident (CVA) FH: prostate cancer G8 FATHER Prostate carcinoma Allergies: Coded Allergies: NO KNOWN ALLERGIES (Unverified , 01/24/22) Home Meds Reported Medications Cariprazine HCl (Vraylar) 6 Mg Cap, 6 MG PO, CAP 01/12/25 Temazepam (Temazepam) 30 Mg Cap, 1 CAP PO QPM, #30 CAP 1 Refill 01/12/25 Trazodone Hcl (Trazodone Hcl) 150 Mg Tab, 1 TAB PO for insomnia per pt 01/25/22 Allopurinol (Allopurinol) 300 Mg Tab, 1 TAB PO DAILYPRN for gout 01/25/22 Levothyroxine Sodium (Levothyroxine Sodium) 25 Mcg Tab, 1 TAB PO DAILYPRN 01/25/22 Current Medications Current Medications Medications (Trade) Dose Ordered Sig/Daphnie Route PRN Reason Start Time Stop Time Status Last Admin Enoxaparin Sodium (Lovenox) 40 mg DAILY SC 01/13/25 10:00 01/13/25 09:54 Hydralazine HCl (Apresoline Injection) 10 mg Q6HP PRN IV SBP>160 01/12/25 20:15 01/13/25 01:11 Vital Signs Vital Signs Date Time Temp Pulse Resp B/P (MAP) Pulse Ox O2 Delivery O2 Flow Rate FiO2 01/13/25 17:04 98.7 67 19 145/53 (83) 100 98.7 01/13/25 08:00 Nasal Cannula* 2 28 Physical Exam General Appeara: Normal Appearance, Thin; sleeping Pulmonary/Respiratory: Normal inspection, Normal breath sounds, Chest non- tender, Lungs clear Cardiovascular/Chest: Normal inspection, Regular rate, Normal Rhythm Abdominal Exam: Normal bowel sounds, Soft, No tenderness Neuro/Mental St: Alert, Oriented, lethargic Labs/Diagnostic Data Labs Test 01/12/25 10:54 01/12/25 10:50 Range/Units White Blood Count 3.3 L 4.4-10.8 10^3/uL Red Blood Count 4.04 L 4.5-5.90 10^6/uL Hemoglobin 12.2 L 13.5-17.5 g/dL Hematocrit 37.1 L 41.0-53.0 % Mean Corpuscular Volume 91.8 80.0-100.0 fL Mean Corpuscular Hemoglobin 30.2 28.0-32.0 pg Mean Corpuscular Hemoglobin Concent 32.8 32.0-36.0 g/dL Red Cell Distribution Width 17.4 H 11.8-14.3 % Platelet Count 109 L 140-450 10^3/uL Mean Platelet Volume 7.4 6.9-10.8 fL Neutrophils (%) (Auto) 66.2 37.0-80.0 % Lymphocytes (%) (Auto) 24.9 10.0-50.0 % Monocytes (%) (Auto) 6.2 0.0-12.0 % Eosinophils (%) (Auto) 2.3 0.0-7.0 % Basophils (%) (Auto) 0.4 0.0-2.0 % Neutrophils # (Auto) 2.2 1.6-8.6 10 ^3/uL Lymphocytes # (Auto) 0.8 0.4-5.4 10 ^3/uL Monocytes # (Auto) 0.2 0-1.3 10 ^3/uL Eosinophils # (Auto) 0.1 0-0.8 10 ^3/uL Basophils # (Auto) 0 0-0.2 10 ^3/uL Nucleated Red Blood Cells 0.2 % Sodium Level 141 136-145 mmol/L Potassium Level 3.3 L 3.5-5.1 mmol/L Chloride Level 103 98-107 mmol/L Carbon Dioxide Level 25 20-31 mmol/L Anion Gap 13 5-15 Blood Urea Nitrogen 20 9-23 mg/dL Creatinine 1.53 H 0.700-1.30 mg/dL Glomerular Filtration Rate Calc 52 >90 mL/min BUN/Creatinine Ratio 13.1 10.0-20.0 Serum Glucose 67 L 74-106 mg/dL Calcium Level 9.2 8.7-10.4 mg/dL Total Bilirubin 1.0 0.2-1.0 mg/dL Aspartate Amino Transferase (AST) 342 H 13-40 U/L Alanine Aminotransferase (ALT) 50 H 7-40 U/L Alkaline Phosphatase 57 46-116 U/L Total Protein 6.1 5.7-8.2 g/dL Albumin 3.4 3.2-4.8 g/dL Urine Color Yellow Yellow Urine Clarity Clear Clear Urine pH 6.0 5.0-9.0 Urine Specific [place] 1.016 1.001-1.035 Urine Protein Negative Negative Urine Ketones 1+ H Negative Urine Blood Negative Negative /uL Urine Nitrite Negative Negative Urine Bilirubin Negative Negative Urine Urobilinogen 2 H Negative mg/dL Urine Leukocyte Esterase Negative Negative /uL Urine RBC 1 0 - 3 /hpf Urine Microscopic WBC < 1 0-3 /HPF Urine Squamous Epithelial Cells Few <5 /hpf Urine Bacteria None seen None Seen /hpf Urine Hyaline Casts Few 0 - 2 /lpf Urine Glucose Normal Normal mg/dL Urine Opiates Screen Neg NEGATIVE Urine Fentanyl Screen Neg NEGATIVE Urine Barbiturates Screen Neg NEGATIVE Urine Phencyclidine Screen Neg NEGATIVE Urine Amphetamines Screen Neg NEGATIVE Urine Benzodiazepines Screen Neg NEGATIVE Urine Cocaine Screen Neg NEGATIVE Urine Cannabinoids Screen Neg NEGATIVE SARS-CoV-2 Antigen (Rapid) Negative NEGATIVE Head CT negative, abdominal pelvic CT negative mild anasarca, current albumin is 3.4 Problems(with codes): (1) Failure to thrive (2) Depression (3) Elevated liver transaminase level Plan/Recommendation Plan Add alcohol level to his toxicology screen Continue supportive care, check ammonia level Nutritional supplements with ensure high-protein one can p.o. three times a day with meals Start psych medications and see if the patient's clinical status improves Patient is not a good candidate for a PEG tube placement because of previous history of gastric bypass Plan discussed with: Patient, Other (Nurse) ROS MITCHELL MD Jan 13, 2025 18:42
[2025-01-14] VITALS (8 sets, daily range): BP systolic 149–161; BP diastolic 87–90; PULSE 55–70; RESP 14–18; TEMP 97.5–98.2; O2SAT 99–100
[2025-01-14 07:08] LABS: INR 1.17 (0.9-1.15); Prothrombin Time 12.2 sec (9.3-11.8)
[2025-01-14 07:14] LABS: Albumin 3.4 g/dL (3.2-4.8); Alkaline Phosphatase 61 U/L (46-116); Anion Gap 10 (5-15); BUN/Creatinine Ratio 12.7 (10.0-20.0); Blood Urea Nitrogen 14 mg/dL (9-23); Calcium 9.1 mg/dL (8.7-10.4); Carbon Dioxide 26 mmol/L (20-31); Chloride 104 mmol/L (98-107); Sodium 140 mmol/L (136-145); Total Protein 6.1 g/dL (5.7-8.2)
[2025-01-14 07:21] LABS: Alanine Aminotransferase 54 U/L (7-40); Aspartate Aminotransferase 251 U/L (13-40); Bilirubin, Total 1.3 mg/dL (0.2-1.0); Glucose 72 mg/dL (74-106); Potassium 3.4 mmol/L (3.5-5.1)
[2025-01-14 07:25] LABS: Ferritin 478.1 ng/mL (22-322)
[2025-01-14 07:44] LABS: % Iron Saturation 69.1 % (20-55)
--- NOTE | 2025-01-14 09:01 | DVH ---
INDICATION: elevated liver tests TECHNIQUE: Multiple real-time sonographic images of the abdomen were obtained. COMPARISON: None FINDINGS: The liver is heterogenous in echogenicity. The liver measures 11cm. No intrahepatic biliar y ductal dilatation is noted. The gallbladder wall measures 0.3 cm and is unremarkable. No gallstones or sludge is seen. The right kidney measures 8cm. No hydronephrosis. 5cm right renal cyst. The pancreas is not well visualized due to obscuration from bowel gas. The visualized portions of the IVC and aorta are grossly unremarkable. IMPRESSION: Heterogeneous echotexture of the liver. Trace bilateral pleural effusions.
[2025-01-14] MEDS: POTASSIUM CHL 20 Meq TABLET PO ONE (11:12)
[2025-01-14] MEDS ORDERED: Ensure HIGH Protein Chocolate 8oz Bottle PO SCH (12:00)
--- NOTE | 2025-01-14 13:35 | DVHPN2 ---
Progress Note - Dictate Date Seen: Jan 14, 2025 Medical Necessity Reason Pt with a Central, PICC or Fol: No Subjective Patient seen at bedside He is more awake and alert Patient still appears depressed Patient is on a regular diet but prefers to drink more liquids Liver enzymes trending down Ammonia mildly elevated Iron panel consistent with anemia of chronic disease Vitamin B12 serum folate are pending vital signs Vital Sign Date Time Temp Pulse Resp B/P (MAP) Pulse Ox O2 Delivery O2 Flow Rate FiO2 01/14/25 13:00 97.5 67 16 155/87 (109) 100 97.5 01/14/25 08:15 Nasal Cannula* 2 28 Total Intake and Output 01/13/25 01/13/25 01/14/25 15:00 23:00 07:00 Intake Total 120 ml 225 ml 150 ml Output Total 350 ml 200 ml Balance 120 ml -125 ml -50 ml medications Current Medications Medications Dose Ordered Sig/Daphnie Route Start Time Stop Time Status Last Admin Dose Admin Sodium Chloride 1,000 ml @ 120 mls/hr Q8H20M IV 01/12/25 18:00 01/13/25 18:40 120 MLS/HR Acetaminophen/ Hydrocodone Bitart 1 tab Q4HP PRN PO 01/12/25 18:00 Ondansetron HCl 4 mg Q4HP PRN IV 01/12/25 18:00 Enoxaparin Sodium 40 mg DAILY SC 01/13/25 10:00 01/14/25 11:02 40 MG Acetaminophen 650 mg Q6HP PRN PO 01/12/25 18:00 Morphine Sulfate 2 mg Q4HPRN PRN IV 01/12/25 18:00 Nitroglycerin 0.4 mg Q5MINP PRN SL 01/12/25 18:00 Morphine Sulfate 2 mg Q30M PRN IV 01/12/25 18:00 Hydralazine HCl 10 mg Q6HP PRN IV 01/12/25 20:15 01/13/25 01:11 10 MG Enteral Nutritional Formula 240 ml TIDWM PO 01/14/25 12:00 objective General Appeara: Normal Appearance, Thin; sleeping Pulmonary/Respiratory: Normal inspection, Normal breath sounds, Chest non- tender, Lungs clear Cardiovascular/Chest: Normal inspection, Regular rate, Normal Rhythm Abdominal Exam: Normal bowel sounds, Soft, No tenderness Neuro/Mental St: Alert, Oriented, depressed appearing laboratory and microbiology Laboratory Tests 01/14/25 06:18 01/12/25 10:54 Test 01/14/25 06:18 Range/Units Serum Glucose 72 L 74-106 mg/dL Liver USG IMPRESSION: Heterogeneous echotexture of the liver. Trace bilateral pleural effusions. Problems(with codes): (1) Elevated liver transaminase level (2) Depression (3) Failure to thrive Prognosis Plan Encouraged patient to eat Start Wellbutrin and Risperdal as recommended by psychiatry consult Add ensure high-protein one can p.o. 4 times a day Hepatitis profile was negative on previous admission Patient has anemia of chronic disease possibly related to previous gastric bypass Continue nutritional supplements I will consider adding Megace for appetite stimulation Monitor labs and I will follow up patient with u Dietary Evaluation Review Recommendations by RD: Protein Supplementation Comments: 1) Initiate Ensure enlive bid 2) Promote adequate oral intake 3) Advance to 2g Na diet when medically feasible, pending MORTGAGE LOAN PROCESSING CLERK approval 4) Follow-up with psychiatry Expected Outcomes/Goals: 1) appetite and labs to improve 2) diet to advance Plan discussed with: Patient ROS MITCHELL MD Jan 14, 2025 13:35
--- NOTE | 2025-01-14 17:27 | DVHPN2 ---
Subjective Patient denies any complaints besides no appetite. 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 motor deficit Medications Current Medications Medications Dose Ordered Sig/Daphnie Route Start Time Stop Time Status Last Admin Dose Admin Sodium Chloride 1,000 ml @ 120 mls/hr Q8H20M IV 01/12/25 18:00 01/13/25 18:40 120 MLS/HR Acetaminophen/ Hydrocodone Bitart 1 tab Q4HP PRN PO 01/12/25 18:00 Ondansetron HCl 4 mg Q4HP PRN IV 01/12/25 18:00 Enoxaparin Sodium 40 mg DAILY SC 01/13/25 10:00 01/14/25 11:02 40 MG Acetaminophen 650 mg Q6HP PRN PO 01/12/25 18:00 Morphine Sulfate 2 mg Q4HPRN PRN IV 01/12/25 18:00 Nitroglycerin 0.4 mg Q5MINP PRN SL 01/12/25 18:00 Morphine Sulfate 2 mg Q30M PRN IV 01/12/25 18:00 Hydralazine HCl 10 mg Q6HP PRN IV 01/12/25 20:15 01/13/25 01:11 10 MG Megestrol Acetate 20 mg BID PO 01/14/25 22:00 Enteral Nutritional Formula 240 ml TIDWM PO 01/14/25 18:00 Laboratory Results Laboratory Tests 01/12/25 10:54 01/14/25 06:18 Chemistry Test 01/14/25 06:18 Albumin 3.4 g/dL (3.2-4.8) Calcium Level 9.1 mg/dL (8.7-10.4) Total Protein 6.1 g/dL (5.7-8.2) Coagulation Test 01/14/25 06:18 Prothrombin Time 12.2 sec (9.3-11.8) H Prothrombin Time INR 1.17 (0.9-1.15) H LFT Test 01/14/25 06:18 Alanine Aminotransferase (ALT) 54 U/L (7-40) H Alkaline Phosphatase 61 U/L (46-116) Aspartate Amino Transferase (AST) 251 U/L (13-40) H Total Bilirubin 1.3 mg/dL (0.2-1.0) H Urinalysis Test 01/12/25 10:50 Urine Color Yellow (Yellow) Urine Clarity Clear (Clear) Urine pH 6.0 (5.0-9.0) Urine Specific [place] 1.016 (1.001-1.035) Urine Protein Negative (Negative) Urine Ketones 1+ (Negative) H Urine Blood Negative /uL (Negative) Urine Nitrite Negative (Negative) Urine Bilirubin Negative (Negative) Urine Urobilinogen 2 mg/dL (Negative) H Urine Leukocyte Esterase Negative /uL (Negative) Urine RBC 1 /hpf (0 - 3) Urine Microscopic WBC < 1 /HPF (0-3) Urine Squamous Epithelial Cells Few /hpf (<5) Urine Bacteria None seen /hpf (None Seen) Urine Hyaline Casts Few /lpf (0 - 2) Urine Glucose Normal mg/dL (Normal) Assessment/Plan Assessment/Plan 59-year-old male with a known history of gastric bypass surgery, history of depression currently not on any medication presented to the hospital with a failure to thrive not eating for last five days found to have 1. Failure to thrive 2. Status post gastric bypass 3. History of major depression currently not suicidal or homicidal -diet as tolerated, GI consultation -plan of care discussed with the patient who understand and agreeable to plan Plan discussed with: Patient Date of Service: Jan 14, 2025 Billing Provider: KOBY CHAPMAN MD Common Visit Codes: NOT BILLABLE KOBY CHAPMAN MD Jan 14, 2025 17:27
[2025-01-14] MEDS: Ensure HIGH Protein Vanilla 8oz Bottle PO SCH (18:42)
[2025-01-14] MEDS: MEGESTROL ACETATE 20 MG TAB PO SCH (21:48)
[2025-01-15] VITALS (8 sets, daily range): BP systolic 147–161; BP diastolic 85–98; PULSE 47–72; RESP 12–18; TEMP 97.5–98.6; O2SAT 98–100
[2025-01-15 11:07] LABS: Folate (Folic Acid) 2.09 ng/mL (>5.38)
--- NOTE | 2025-01-15 15:41 | DVHPN2 ---
Progress Note Date Seen: Jan 15, 2025 Resident Creating Document: MARISSA JANE RESIDENT Medical Necessity Reason Pt with a Central, PICC or Fol: No Subjective Review of Systems Patient seen and examined at bedside No new complaint Poor appetite Patient tried to eat as much as he can Objective vital signs Vital Sign Date Time Temp Pulse Resp B/P (MAP) Pulse Ox O2 Delivery O2 Flow Rate FiO2 01/15/25 13:00 98.6 70 14 153/88 (109) 98 98.6 01/15/25 08:10 Nasal Cannula* 2 28 Total Intake and Output 01/14/25 01/14/25 01/15/25 15:00 23:00 07:00 Intake Total 280 ml 520 ml 420 ml Output Total 425 ml 400 ml Balance 280 ml 95 ml 20 ml medications Current Medications Medications Dose Ordered Sig/Daphnie Route Start Time Stop Time Status Last Admin Dose Admin Sodium Chloride 1,000 ml @ 120 mls/hr Q8H20M IV 01/12/25 18:00 01/13/25 18:40 120 MLS/HR Acetaminophen/ Hydrocodone Bitart 1 tab Q4HP PRN PO 01/12/25 18:00 Ondansetron HCl 4 mg Q4HP PRN IV 01/12/25 18:00 Enoxaparin Sodium 40 mg DAILY SC 01/13/25 10:00 01/15/25 09:47 40 MG Acetaminophen 650 mg Q6HP PRN PO 01/12/25 18:00 Morphine Sulfate 2 mg Q4HPRN PRN IV 01/12/25 18:00 Nitroglycerin 0.4 mg Q5MINP PRN SL 01/12/25 18:00 Morphine Sulfate 2 mg Q30M PRN IV 01/12/25 18:00 Hydralazine HCl 10 mg Q6HP PRN IV 01/12/25 20:15 01/13/25 01:11 10 MG Megestrol Acetate 20 mg BID PO 01/14/25 22:00 01/15/25 09:47 20 MG Enteral Nutritional Formula 240 ml TIDWM PO 01/14/25 18:00 01/15/25 12:17 240 ML Bupropion HCl 300 mg QAM PO 01/15/25 15:00 Risperidone 1 mg HS PO 01/15/25 22:00 Examination General Appearance: Cooperative. Cachectic, thin appearing. Neck Exam: Normal inspection. Non-tender. Normal alignment Pulmonary/Respiratory: Chest non-tender. Clear bilateral breath sounds Cardiovascular/Chest: Regular rate and rhythm. No murmurs. No JVD. Peripheral Pulses: 2+ Radial (R). 2+ Radial (L). 2+ Pedal (R). 2+ Pedal (L) Abdominal Exam: Normal bowel sounds. Soft. Nontender. No hepatospenomegaly. No masses Ankle Exam: Negative ankle edema Lower extremities: Negative lower extremity edema Neuro/Mental Status: A&O x4. Coherent Thoughts/Psych: Normal thought pattern. laboratory and microbiology Laboratory Tests 01/14/25 06:18 01/12/25 10:54 Test 01/14/25 06:18 Range/Units Serum Glucose 72 L 74-106 mg/dL Problem List/Assessment/Plan Problem List/Assessment/Plan Transaminitis Depression Failure to thrive Anemia of chronic disease Plan/recommendation Dr Quezada -continue ensure high-protein intake p.o. 4 times daily -liver enzymes trending down, previous hepatitis panel was negative(01/28/24) -psychiatric consultation: Continue Wellbutrin and Risperdal as per recommendation -encourage food intake, currently soft diet, advanced as toleration. -Megace for appetite stimulation -continue to monitor lab -we will continue following this patient Plan discussed with: Patient, Other (RN) Dietary Evaluation Review Recommendations by RD: Protein Supplementation Comments: 1) Initiate Ensure enlive bid 2) Promote adequate oral intake 3) Advance to 2g Na diet when medically feasible, pending CHILD CARE GROUP LEADER approval 4) Follow-up with psychiatry Expected Outcomes/Goals: 1) appetite and labs to improve 2) diet to advance MARISSA JANE RESIDENT Jan 15, 2025 15:41
--- NOTE | 2025-01-15 16:58 | DVHPN2 ---
Subjective Patient denies any complaints besides no appetite. 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 motor deficit Medications Current Medications Medications Dose Ordered Sig/Daphnie Route Start Time Stop Time Status Last Admin Dose Admin Sodium Chloride 1,000 ml @ 120 mls/hr Q8H20M IV 01/12/25 18:00 01/13/25 18:40 120 MLS/HR Acetaminophen/ Hydrocodone Bitart 1 tab Q4HP PRN PO 01/12/25 18:00 Ondansetron HCl 4 mg Q4HP PRN IV 01/12/25 18:00 Enoxaparin Sodium 40 mg DAILY SC 01/13/25 10:00 01/15/25 09:47 40 MG Acetaminophen 650 mg Q6HP PRN PO 01/12/25 18:00 Morphine Sulfate 2 mg Q4HPRN PRN IV 01/12/25 18:00 Nitroglycerin 0.4 mg Q5MINP PRN SL 01/12/25 18:00 Morphine Sulfate 2 mg Q30M PRN IV 01/12/25 18:00 Hydralazine HCl 10 mg Q6HP PRN IV 01/12/25 20:15 01/13/25 01:11 10 MG Megestrol Acetate 20 mg BID PO 01/14/25 22:00 01/15/25 09:47 20 MG Enteral Nutritional Formula 240 ml TIDWM PO 01/14/25 18:00 01/15/25 12:17 240 ML Bupropion HCl 300 mg QAM PO 01/15/25 15:00 Risperidone 1 mg HS PO 01/15/25 22:00 Laboratory Results Laboratory Tests 01/12/25 10:54 01/14/25 06:18 Urinalysis Test 01/12/25 10:50 Urine Color Yellow (Yellow) Urine Clarity Clear (Clear) Urine pH 6.0 (5.0-9.0) Urine Specific [place] 1.016 (1.001-1.035) Urine Protein Negative (Negative) Urine Ketones 1+ (Negative) H Urine Blood Negative /uL (Negative) Urine Nitrite Negative (Negative) Urine Bilirubin Negative (Negative) Urine Urobilinogen 2 mg/dL (Negative) H Urine Leukocyte Esterase Negative /uL (Negative) Urine RBC 1 /hpf (0 - 3) Urine Microscopic WBC < 1 /HPF (0-3) Urine Squamous Epithelial Cells Few /hpf (<5) Urine Bacteria None seen /hpf (None Seen) Urine Hyaline Casts Few /lpf (0 - 2) Urine Glucose Normal mg/dL (Normal) Assessment/Plan Assessment/Plan 59-year-old male with a known history of gastric bypass surgery, history of depression currently not on any medication presented to the hospital with a failure to thrive not eating for last five days found to have 1. Failure to thrive 2. Status post gastric bypass 3. History of major depression currently not suicidal or homicidal -diet as tolerated, GI consultation treated, tele psych recommendation started including Wellbutrin and risperidone. -plan of care discussed with the patient who understand and agreeable to plan Plan discussed with: Patient My Orders Orders - KOBY CHAPMAN MD Procedure Category Date Status Time Bupropion Tablet PHA 01/15/25 In Process (Wellbutrin Tablet) 15:00 Risperidone Tablet PHA 01/15/25 In Process (Risperdal Tablet) 22:00 Date of Service: Jan 15, 2025 Billing Provider: KOBY CHAPMAN MD Common Visit Codes: NOT BILLABLE KOBY CHAPMAN MD Jan 15, 2025 16:58
[2025-01-15] MEDS: buPROPion HCL 100 MG TAB PO SCH (17:06)
[2025-01-15] MEDS: risperiDONE 1 MG TAB PO SCH (21:29)
[2025-01-16] VITALS (9 sets, daily range): BP systolic 130–163; BP diastolic 80–97; PULSE 63–82; RESP 15–18; TEMP 97.6–98.6; O2SAT 93–99
--- NOTE | 2025-01-16 16:49 | DVHPN2 ---
Progress Note - Dictate Date Seen: Jan 16, 2025 Medical Necessity Reason Pt with a Central, PICC or Fol: No Subjective Patient seen at bedside Patient is feeling much better He stated the medications both for his depression and for his appetite stimulation really helped him He is tolerating a soft mechanical diet without any trouble Liver enzymes trending down Ammonia mildly elevated Patient does not have a history of drinking alcohol His father did diaphragm cirrhosis of the liver but he was not a drinker Iron panel consistent with anemia of chronic disease Vitamin B12 serum folate are normal vital signs Vital Sign Date Time Temp Pulse Resp B/P (MAP) Pulse Ox O2 Delivery O2 Flow Rate FiO2 01/16/25 12:33 98.6 76 15 138/96 (110) 99 98.6 01/16/25 08:20 Nasal Cannula* 2 28 Total Intake and Output 01/15/25 01/15/25 01/16/25 15:00 23:00 07:00 Intake Total 1050 ml 300 ml Output Total 800 ml Balance 1050 ml -500 ml medications Current Medications Medications Dose Ordered Sig/Daphnie Route Start Time Stop Time Status Last Admin Dose Admin Sodium Chloride 1,000 ml @ 120 mls/hr Q8H20M IV 01/12/25 18:00 01/15/25 21:37 120 MLS/HR Acetaminophen/ Hydrocodone Bitart 1 tab Q4HP PRN PO 01/12/25 18:00 Ondansetron HCl 4 mg Q4HP PRN IV 01/12/25 18:00 Enoxaparin Sodium 40 mg DAILY SC 01/13/25 10:00 01/16/25 12:08 40 MG Acetaminophen 650 mg Q6HP PRN PO 01/12/25 18:00 Morphine Sulfate 2 mg Q4HPRN PRN IV 01/12/25 18:00 Nitroglycerin 0.4 mg Q5MINP PRN SL 01/12/25 18:00 Morphine Sulfate 2 mg Q30M PRN IV 01/12/25 18:00 Hydralazine HCl 10 mg Q6HP PRN IV 01/12/25 20:15 01/13/25 01:11 10 MG Megestrol Acetate 20 mg BID PO 01/14/25 22:00 01/16/25 12:08 20 MG Enteral Nutritional Formula 240 ml TIDWM PO 01/14/25 18:00 01/16/25 12:15 240 ML Bupropion HCl 300 mg QAM PO 01/15/25 15:00 01/16/25 06:08 300 MG Risperidone 1 mg HS PO 01/15/25 22:00 01/15/25 21:29 1 MG objective General Appeara: Normal Appearance, Thin; sleeping Pulmonary/Respiratory: Normal inspection, Normal breath sounds, Chest non- tender, Lungs clear Cardiovascular/Chest: Normal inspection, Regular rate, Normal Rhythm Abdominal Exam: Normal bowel sounds, Soft, No tenderness Neuro/Mental St: Alert, Oriented, depressed appearing laboratory and microbiology Laboratory Tests 01/14/25 06:18 01/12/25 10:54 Test 01/14/25 06:18 Range/Units Serum Glucose 72 L 74-106 mg/dL Problems(with codes): (1) Elevated liver transaminase level (2) Depression (3) Failure to thrive (4) Syncope and collapse Prognosis PLAN Advance REAL Pt stable for discharge from GI point of view Maintained on Pepcid or PPI Mild elevation in ammonia, considering using lactulose for constipation possibly 15-30 mL daily Outpt f/u with GI to monitor liver disease and discuss elective panendoscopy Patient may need outpatient workup for hemosiderosis Dietary Evaluation Review Recommendations by RD: Protein Supplementation Comments: 1) Initiate Ensure enlive bid 2) Promote adequate oral intake 3) Advance to 2g Na diet when medically feasible, pending SILVER DESIGNER approval 4) Follow-up with psychiatry Expected Outcomes/Goals: 1) appetite and labs to improve 2) diet to advance Plan discussed with: Patient ROS MITCHELL MD Jan 16, 2025 16:49
--- NOTE | 2025-01-16 17:44 | DVHPN2 ---
Subjective Patient denies any complaints , psych medication were started yesterday, patient's appetite started to improve. Possible discharge in next 24 hours. Reviewed: Care Plan Changes from previous H/P or p: No Changes Objective Vitals Vital Signs Date Time Temp Pulse Resp B/P (MAP) Pulse Ox O2 Delivery O2 Flow Rate FiO2 01/16/25 17:27 79 18 149/87 (107) 01/16/25 16:45 98.2 98 98.2 01/16/25 08:20 Nasal Cannula* 2 28 Intake/Output Intake and Output 01/16/25 07:00 Intake Total 1350 ml Output Total 800 ml Balance 550 ml Intake Oral 1350 ml Output Urine Total 800 ml # Voids 1 # Bowel Movements 1 Exam HEENT pupils are reactive Neck is supple CV is S1-S2 regular rate and rhythm Respiratory diminished breath sounds bases GI positive bowel sound Extremity no edema 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 Medications Current Medications Medications Dose Ordered Sig/Daphnie Route Start Time Stop Time Status Last Admin Dose Admin Sodium Chloride 1,000 ml @ 120 mls/hr Q8H20M IV 01/12/25 18:00 01/15/25 21:37 120 MLS/HR Acetaminophen/ Hydrocodone Bitart 1 tab Q4HP PRN PO 01/12/25 18:00 Ondansetron HCl 4 mg Q4HP PRN IV 01/12/25 18:00 Enoxaparin Sodium 40 mg DAILY SC 01/13/25 10:00 01/16/25 12:08 40 MG Acetaminophen 650 mg Q6HP PRN PO 01/12/25 18:00 Morphine Sulfate 2 mg Q4HPRN PRN IV 01/12/25 18:00 Nitroglycerin 0.4 mg Q5MINP PRN SL 01/12/25 18:00 Morphine Sulfate 2 mg Q30M PRN IV 01/12/25 18:00 Hydralazine HCl 10 mg Q6HP PRN IV 01/12/25 20:15 01/13/25 01:11 10 MG Megestrol Acetate 20 mg BID PO 01/14/25 22:00 01/16/25 12:08 20 MG Enteral Nutritional Formula 240 ml TIDWM PO 01/14/25 18:00 01/16/25 12:15 240 ML Bupropion HCl 300 mg QAM PO 01/15/25 15:00 01/16/25 06:08 300 MG Risperidone 1 mg HS PO 01/15/25 22:00 01/15/25 21:29 1 MG Laboratory Results Laboratory Tests 01/12/25 10:54 01/14/25 06:18 Urinalysis Test 01/12/25 10:50 Urine Color Yellow (Yellow) Urine Clarity Clear (Clear) Urine pH 6.0 (5.0-9.0) Urine Specific [place] 1.016 (1.001-1.035) Urine Protein Negative (Negative) Urine Ketones 1+ (Negative) H Urine Blood Negative /uL (Negative) Urine Nitrite Negative (Negative) Urine Bilirubin Negative (Negative) Urine Urobilinogen 2 mg/dL (Negative) H Urine Leukocyte Esterase Negative /uL (Negative) Urine RBC 1 /hpf (0 - 3) Urine Microscopic WBC < 1 /HPF (0-3) Urine Squamous Epithelial Cells Few /hpf (<5) Urine Bacteria None seen /hpf (None Seen) Urine Hyaline Casts Few /lpf (0 - 2) Urine Glucose Normal mg/dL (Normal) Assessment/Plan Assessment/Plan 59-year-old male with a known history of gastric bypass surgery, history of depression currently not on any medication presented to the hospital with a failure to thrive not eating for last five days found to have 1. Failure to thrive , 2. Status post gastric bypass 3. History of major depression currently not suicidal or homicidal -diet as tolerated, GI consultation treated, tele psych recommendation started including Wellbutrin and risperidone. -plan of care discussed with the patient who understand and agreeable to plan -discharge plan in next 24 hours. Plan discussed with: Patient Date of Service: Jan 16, 2025 Billing Provider: KOBY CHAPMAN MD Common Visit Codes: NOT BILLABLE KOBY CHAPMAN MD Jan 16, 2025 17:44
[2025-01-17] VITALS (7 sets, daily range): BP systolic 128–158; BP diastolic 79–98; PULSE 65–73; RESP 16–18; TEMP 97.9–98.7; O2SAT 95–100
[2025-01-17] MEDS ORDERED: MEGE20TA3 PO (14:15)
--- NOTE | 2025-01-17 14:22 | DVHDS2 ---
Discharge Summary Date of Admission Jan 12, 2025 at 17:56 Date of Discharge: Jan 17, 2025 Admitting Diagnosis 59-year-old male with a known history of gastric bypass surgery, history of depression currently not on any medication presented to the hospital with a failure to thrive not eating for last five days found to have MAJOR DEPRESSION ALTHOUGH NOT SUICIDAL OR HOMICIDAL. PSYCHIATRY WAS CONSULTED WHO RECOMMENDED PSYCH MEDICATION INCLUDING WELLBUTRIN AND RISPERIDONE. PATIENT'S STARTED EATING AND CURRENTLY STABLE TO BE DISCHARGED. TELE PSYCH CLEARED THE PATIENT TO BE DISCHARGED. PATIENT WAS BEING SEEN BY GI WELL WHO RECOMMENDED MEGACE. PATIENT HAS STATED THAT HE HAS PSYCHIATRY MEDICATION AT HOME AND HE WILL FOLLOW UP WITH HIS OWN PSYCHIATRY. I WILL PRESCRIBE WITH THE MEGACE. PATIENT WILL BE DISCHARGED HOME Labs/Diagnostic Data: Laboratory Results Test 01/16/25 11:34 01/14/25 06:18 01/13/25 19:53 01/12/25 10:54 Ferritin 519.8 ng/mL (22-322) Prothrombin Time 12.2 sec (9.3-11.8) Prothrombin Time INR 1.17 (0.9-1.15) Sodium Level 140 mmol/L (136-145) Potassium Level 3.4 mmol/L (3.5-5.1) Chloride Level 104 mmol/L (98-107) Carbon Dioxide Level 26 mmol/L (20-31) Anion Gap 10 (5-15) Blood Urea Nitrogen 14 mg/dL (9-23) Creatinine 1.10 mg/dL (0.700-1.30) Glomerular Filtration Rate Calc 78 mL/min (>90) BUN/Creatinine Ratio 12.7 (10.0-20.0) Serum Glucose 72 mg/dL (74-106) Calcium Level 9.1 mg/dL (8.7-10.4) Iron Level 130 ug/dL (65-175) Total Iron Binding Capacity 188 ug/dL (250-425) Percent Iron Saturation 69.1 % (20-55) Total Bilirubin 1.3 mg/dL (0.2-1.0) Aspartate Amino Transferase (AST) 251 U/L (13-40) Alanine Aminotransferase (ALT) 54 U/L (7-40) Alkaline Phosphatase 61 U/L (46-116) Ammonia 55 umol/L (11-32) Total Protein 6.1 g/dL (5.7-8.2) Albumin 3.4 g/dL (3.2-4.8) Vitamin B12 Level 600 pg/mL (211-911) Folic Acid 2.09 ng/mL (>5.38) Plasma/Serum Blood Alcohol 3.2 mg/dL (<10) White Blood Count 3.3 10^3/uL (4.4-10.8) Red Blood Count 4.04 10^6/uL (4.5-5.90) Hemoglobin 12.2 g/dL (13.5-17.5) Hematocrit 37.1 % (41.0-53.0) Mean Corpuscular Volume 91.8 fL (80.0-100.0) Mean Corpuscular Hemoglobin 30.2 pg (28.0-32.0) Mean Corpuscular Hemoglobin Concent 32.8 g/dL (32.0-36.0) Red Cell Distribution Width 17.4 % (11.8-14.3) Platelet Count 109 10^3/uL (140-450) Mean Platelet Volume 7.4 fL (6.9-10.8) Neutrophils (%) (Auto) 66.2 % (37.0-80.0) Lymphocytes (%) (Auto) 24.9 % (10.0-50.0) Monocytes (%) (Auto) 6.2 % (0.0-12.0) Eosinophils (%) (Auto) 2.3 % (0.0-7.0) Basophils (%) (Auto) 0.4 % (0.0-2.0) Neutrophils # (Auto) 2.2 10 ^3/uL (1.6-8.6) Lymphocytes # (Auto) 0.8 10 ^3/uL (0.4-5.4) Monocytes # (Auto) 0.2 10 ^3/uL (0-1.3) Eosinophils # (Auto) 0.1 10 ^3/uL (0-0.8) Basophils # (Auto) 0 10 ^3/uL (0-0.2) Nucleated Red Blood Cells 0.2 % Test 01/12/25 10:50 Urine Color Yellow (Yellow) Urine Clarity Clear (Clear) Urine pH 6.0 (5.0-9.0) Urine Specific [place] 1.016 (1.001-1.035) Urine Protein Negative (Negative) Urine Ketones 1+ (Negative) Urine Blood Negative /uL (Negative) Urine Nitrite Negative (Negative) Urine Bilirubin Negative (Negative) Urine Urobilinogen 2 mg/dL (Negative) Urine Leukocyte Esterase Negative /uL (Negative) Urine RBC 1 /hpf (0 - 3) Urine Microscopic WBC < 1 /HPF (0-3) Urine Squamous Epithelial Cells Few /hpf (<5) Urine Bacteria None seen /hpf (None Seen) Urine Hyaline Casts Few /lpf (0 - 2) Urine Glucose Normal mg/dL (Normal) Urine Opiates Screen Neg (NEGATIVE) Urine Fentanyl Screen Neg (NEGATIVE) Urine Barbiturates Screen Neg (NEGATIVE) Urine Phencyclidine Screen Neg (NEGATIVE) Urine Amphetamines Screen Neg (NEGATIVE) Urine Benzodiazepines Screen Neg (NEGATIVE) Urine Cocaine Screen Neg (NEGATIVE) Urine Cannabinoids Screen Neg (NEGATIVE) SARS-CoV-2 Antigen (Rapid) Negative (NEGATIVE) Other Laboratory Tests 01/14/25 06:18 01/12/25 10:54 Brief Hx & Hospital Course: 59-year-old male with a known history of gastric bypass surgery, history of depression currently not on any medication presented to the hospital with a failure to thrive not eating for last five days FOUND TO HAVE MAJOR DEPRESSION. PATIENT WAS STARTED ON PSYCHIATRY MEDICATION. PATIENT WAS BEING SEEN BY GI WELL. PATIENT'S APPETITE IMPROVED AND CURRENTLY STABLE TO BE DISCHARGED. PATIENT ALREADY STATED THAT HE HAS A PSYCH MEDICATION AT HOME AND HE WILL FOLLOW UP WITH THE HIS OWN PSYCHIATRY. GI ALSO CLEARED THE PATIENT TO BE DISCHARGED ON MEGACE. PATIENT IS BEING DISCHARGED UNDER STABLE CONDITION. Condition at Discharge: Stable Final Diagnosis/Problems List 59-year-old male with a known history of gastric bypass surgery, history of depression currently not on any medication presented to the hospital with a failure to thrive not eating for last five days found to have 1. Failure to thrive ,IMPROVED 2. Status post gastric bypass 3. History of major depression currently not suicidal or homicidal Discharge Disposition: Home SNF Discharge Will this Physician continue t: No Discharge Instruct/Medications Diet: Regular Activity: No Restrictions, As Tolerated Follow Up/Referral: FOLLOW UP WITH THE PCP IN ONE WEEK FOLLOW UP WITH PSYCHIATRY DR GRANADOS IN 1-2 WEEKS Medications: RESUME PSYCH MEDICATION PATIENT HAS STATED THAT HE HAS PSYCHIATRY MEDICATION AT HOME MEGACE PRESCRIBED Discharge Statement: "Patient was advised to return to the ER or call 911 if any headaches, dizziness, shortness of breath, chest pain, abdominal pain, bleeding, fevers, or worsening of medical condition. Patient was counseled about treatment plan, medications, possible side effects, patientverbalized understanding. All questions were answered to the best of my ability. This discharge took greater then 30 minutes in planning, reviewing documentation, counseling the patient, and discussing with other team members." ASSESSMENT ASSESSMENT Assessment 59-year-old male with a known history of gastric bypass surgery, history of depression currently not on any medication presented to the hospital with a failure to thrive not eating for last five days found to have 1. Failure to thrive ,IMPROVED 2. Status post gastric bypass 3. History of major depression currently not suicidal or homicidal Date of Service: Jan 17, 2025 Billing Provider: KOBY CHAPMAN MD Common Visit Codes: NOT BILLABLE KOBY CHAPMAN MD Jan 17, 2025 14:22
[2025-01-18 10:22] LABS: Hepatitis B Core Total AB Negative (Negative)
[2025-01-18 11:35] LABS: Hepatitis A Total Antibody Positive (Negative); Hepatitis B Surface Antibody Negative (Negative); Hepatitis B Surface Antigen Negative (Negative); Hepatitis C Antibody Negative (Negative)
== END 2025-01-17 18:15 | disposition home or self-care (01) | DRG 421 ==
LOC: ER 10:24 → EDBD 10:24 → OVERFLOW 17:56 → TELE-CENTR 22:40
PROVIDERS: ADMIT Internal Medicine; ATTEND Internal Medicine
DX: R62.7 Adult failure to thrive (principal); N17.0 Acute kidney failure with tubular necrosis; D63.8 Anemia in other chronic diseases classified elsewhere; F32.9 Major depressive disorder, single episode, unspecified; I10 Essential (primary) hypertension; E03.9 Hypothyroidism, unspecified; D72.819 Decreased white blood cell count, unspecified; Z80.42 Family history of malignant neoplasm of prostate; Z98.84 Bariatric surgery status; Z86.73 Personal history of transient ischemic attack (TIA), and cerebral infarction without residual deficits; Z82.3 Family history of stroke; Z91.51 Personal history of suicidal behavior; Z79.899 Other long term (current) drug therapy; Z68.21 Body mass index [BMI] 21.0-21.9, adult
CPT/HCPCS: 36415; 70450; 74176; 76705; 80053; 80307; 80320; 81001; 82140; 82607; 82728; 82746; 83540; 83550; 85025; 85610; 86704; 86706; 86708; 86803; 87340; 87426; 92610; 96360; 96361; 97110; 97116; 97163; 97530; G0378; J3480

== ENCOUNTER 2025-03-30 12:25 | Inpatient (IN) | payer MEDICAID ==
[~2025-03-30] VITALS: Ht 180.3 cm; Wt 74.0 kg
[~2025-03-30 12:25] MED LIST changes: -AUG875T PO; +CARI1CAP4 PO; +MEGE20TA3 PO; -MIDO5TAB22 PO; -MIRT-93 PO; -QUET1TAB11 PO
--- NOTE | 2025-03-30 13:29 | DVH ---
EXAM: CT HEAD WITHOUT CONTRAST HISTORY: dizzy COMPARISON: CT HEAD WITHOUT CONTRAST on DOS: 01/12/25, CT HEAD WITHOUT CONTRAST on DOS: 01/28/24 TECHNIQUE: Axial images of the head were obtained and reformatted in coronal and sagittal planes. All CT scans at this medical facility are performed using dose modulation techniques as appropriate t o a performed exam including the following: Automated exposure control was utilized; adjustment of th e MA and/or KV according to patient size; and use of iterative reconstruction technique. CT Dose: CTDI volume is 56 mGy. Dose-length product is 904 mGy*cm FINDINGS: There is no evidence of acute intracranial hemorrhage, mass, mass effect midline shift. There is no h ydrocephalus or extra-axial fluid collection. Blue-white matter differentiation is maintained. The visualized paranasal sinuses and mastoid air cells are clear. The calvarium is intact. IMPRESSION: 1. No acute intracranial process. HS:Y
--- NOTE | 2025-03-30 13:36 | DVH ---
CHEST RADIOGRAPH Indication: dizzy Technique: Single frontal view of the chest was obtained Comparison: None FINDINGS: Lines and Tubes: None Lungs: No focal consolidation. Elevation of the right hemidiaphragm. Gas-filled bowel loop underneath the right hemidiaphragm. Pleura: No effusion. No pneumothorax. Cardiomediastinal contours: Unremarkable Bones: No acute osseous abnormality. IMPRESSION: No acute cardiopulmonary disease.
[2025-03-30 13:49] LABS: Basophils # (auto) 0 10 ^3/uL (0-0.2); Basophils % (auto) 1.1 % (0.0-2.0); Eosinophils # (auto) 0.1 10 ^3/uL (0-0.8); Eosinophils % (auto) 3.4 % (0.0-7.0); Hematocrit 38.6 % (41.0-53.0); Hemoglobin 12.7 g/dL (13.5-17.5); Lymphocytes # (auto) 0.7 10 ^3/uL (0.4-5.4); Lymphocytes % (auto) 17.2 % (10.0-50.0); Mean Corpuscular Hemoglobin 31.5 pg (28.0-32.0); Mean Corpuscular Hgb Conc. 32.9 g/dL (32.0-36.0); Mean Corpuscular Volume 95.8 fL (80.0-100.0); Monocytes # (auto) 0.4 10 ^3/uL (0-1.3); Monocytes % (auto) 9.3 % (0.0-12.0); Neutrophils # (auto) 2.7 10 ^3/uL (1.6-8.6); Nucleated Red Blood Cells % 0.1 %; Platelet Count (auto) 147 10^3/uL (140-450); Red Blood Cells 4.03 10^6/uL (4.5-5.90); White Blood Cell 3.9 10^3/uL (4.4-10.8)
[2025-03-30 13:54] LABS: Alanine Aminotransferase 27 U/L (7-40); Albumin 3.5 g/dL (3.2-4.8); Alkaline Phosphatase 116 U/L (46-116); Anion Gap 8 (5-15); Aspartate Aminotransferase 27 U/L (13-40); BUN/Creatinine Ratio 10.4 (10.0-20.0); Bilirubin, Total 0.6 mg/dL (0.2-1.0); Blood Urea Nitrogen 12 mg/dL (9-23); Calcium 9.2 mg/dL (8.7-10.4); Carbon Dioxide 23 mmol/L (20-31); Chloride 112 mmol/L (98-107); Glucose 69 mg/dL (74-106); Potassium 3.8 mmol/L (3.5-5.1); Sodium 143 mmol/L (136-145)
[2025-03-30 14:20] VITALS: PULSE 60; RESP 16; O2SAT 98
--- NOTE | 2025-03-30 16:05 | ED.PDOC ---
History of Present Illness HPI Comments 60-year-old male presents with a chief complaint of weakness, dizziness and hypotension. Patient reports that he started to have dizziness while at physical therapy. Patient states that he was standing and he started to feel dizzy, his legs became weak, and he could no longer stand. Per EMS, systolic blood pressure was in the 70s and blood glucose was in the 50s. Patient received 500mL fluids and D10 per EMS. Blood sugar was 159 on arrival to ER. Chief Complaint: Dizziness Time Seen by MD: 15:36 Primary Care Provider: UNKNOWN Reviewed Notes: Medications, Allergies Allergies: Coded Allergies: NO KNOWN ALLERGIES (Unverified , 01/24/22) Home Meds Active Scripts Megestrol Acetate (Megace) 20 Mg Tb, 20 MG PO DAILY for 30 Days, #30 TAB Prov:KOBY CHAPMAN MD 01/17/25 Reported Medications Cariprazine HCl (Vraylar) 6 Mg Cap, 6 MG PO, CAP 01/12/25 Trazodone Hcl (Trazodone Hcl) 150 Mg Tab, 1 TAB PO for insomnia per pt 01/25/22 Allopurinol (Allopurinol) 300 Mg Tab, 1 TAB PO DAILYPRN for gout 01/25/22 Levothyroxine Sodium (Levothyroxine Sodium) 25 Mcg Tab, 1 TAB PO DAILYPRN 01/25/22 Information Source: Patient, Emergency Med Personnel Mode of Arrival: EMS Severity: Moderate Timing: Hours Duration: Since onset Prehospital treatment: Accucheck, Regional Marketing Director, Treatment Past Medical History PAST MEDICAL HISTORY: Anxiety, Depression, Gout, HTN Past Medical History (Other): Reports previous diabetes that resolved after weight loss Surgical History (Other): Gastric bypass Family History Family History: Family hx of Cancer Social History Smoker: Non-Smoker Alcohol: Denies ETOH Use Drugs: Marijuana Lives In: Home Constitutional: denies: chills, diaphoresis, fatigue, fever, malaise, sweats, weakness, others EENTM: denies: blurred vision, double vision, ear bleeding, ear discharge, ear drainage, ear pain, ear ringing, eye pain, eye redness, hearing loss, mouth pain, mouth swelling, nasal discharge, nose bleeding, nose congestion, nose pain, photophobia, tearing, throat pain, throat swelling, voice changes, others Respiratory: denies: cough, hemoptysis, orthopnea, SOB at rest, shortness of breath, SOB with excertion, stridor, wheezing, others Cardiovascular: denies: chest pain, dizzy spells, diaphoresis, Dyspnea on exertion, edema, irregular heart beat, left arm pain, lightheadedness, palpitations, PND, syncope, others Gastrointestinal: denies: abdomen distended, abdominal pain, blood streaked bowels, constipated, diarrhea, dysphagia, difficulty swallowing, hematemesis, melena, nausea, poor appetite, poor fluid intake, rectal bleeding, rectal pain, vomiting, others Genitourinary: denies: burning, dysuria, flank pain, frequency, hematuria, incontinence, penile discharge, penile sore, pain, testicle pain, testicle swelling, urgency, others Neurological: reports: dizziness; denies: fainting, headache, left sided numbness, left sided weakness, numbness, paresthesia, pre-existing deficit, right sided numbness, right sided weakness, seizure, speech problems, tingling, tremors, weakness, others Musculoskeletal: denies: back pain, gout, joint pain, joint swelling, muscle pain, muscle stiffness, neck pain, others Integumetry: denies: bruises, change in color, change in hair/nails, dryness, laceration, lesions, lumps, rash, wounds, others Allergic/Immunocompromised: denies: Difficulty Healing, Frequent Infections, Hives, Itching, others Hematologic/Lymphatic: denies: anemia, blood clots, easy bleeding, easy bru ising, swollen glands, others Endocrine: denies: excessive hunger, excessive sweating, excessive thirst, e xcessive urination, flushing, intolerance to cold, intolerance to heat, unexplained weight gain, unexplained weight loss, others Psychiatric: denies: anxiety, bipolar disorder, depression, hopeless, panic disorder, schizophrenia, sleepless, suicidal, others All Other Systems: Reviewed and Negative Physical Exam General Appearance: No Apparent Distress HEENT: Other (Pupils and face symmetric. Moist mucous membranes.) Neck: Full Range of Motion, Normal Inspection Respiratory: Lungs Clear, No Accessory Muscle Use, No Respiratory Distress, Normal Breath Sounds Cardiovascular: No Edema, No JVD, Regular Rate/Rhythm Breast Exam: Deferred Gastrointestinal: Non Tender, Soft Genitalia: Deferred Pelvic: Deferred Rectal: Deferred Extremities: Normal inspection, Normal range of motion, Non-tender, No pedal edema Neurologic: Alert (Oriented x4), Normal Affect, Normal Mood, Other (Moves all extremities. No gross focal deficit.) Cerebellar Function: NOT DONE Reflexes: NOT DONE Skin: Dry, Pallor, Warm Lymphatic: NOT DONE Was a procedure done? Was a procedure done?: No Differential Dx Considerations may include: Orthostasis, hypovolemia/dehydration, arrhythmia, [place], sepsis, CVA, TIA, el ectrolyte imbalance, hypoglycemia, among others X-Ray, Labs, Meds, VS Vital Signs Date Time Temp Pulse Resp B/P (MAP) Pulse Ox O2 Delivery O2 Flow Rate FiO2 03/30/25 20:52 59 16 97 Room Air* 0 21 03/30/25 20:42 98.5 60 16 154/84 (107) 97 98.5 03/30/25 18:00 60 14 131/86 (101) 98 03/30/25 17:00 58 16 143/87 (105) 98 03/30/25 16:00 59 18 153/77 (102) 98 03/30/25 15:00 59 17 143/87 (105) 98 03/30/25 14:20 60 16 98 Room Air* 0 21 03/30/25 14:20 97.5 60 16 137/81 (99) 98 97.5 03/30/25 13:30 64 16 134/79 (97) 98 03/30/25 12:43 98.1 60 18 117/75 (89) 96 98.1 03/30/25 12:27 62 Lab Test 03/30/25 20:51 03/30/25 16:25 03/30/25 14:40 03/30/25 14:33 Range/Units POC Glucose 83 90 70-106 mg/dl Urine Color Yellow Yellow Urine Clarity Clear Clear Urine pH 6.0 5.0-9.0 Urine Specific [place] 1.012 1.001-1.035 Urine Protein Negative Negative Urine Ketones Negative Negative Urine Blood Negative Negative /uL Urine Nitrite Negative Negative Urine Bilirubin Negative Negative Urine Urobilinogen Normal Negative mg/dL Urine Leukocyte Esterase Negative Negative /uL Urine RBC 11 0 - 3 /hpf Urine Microscopic WBC 2 0-3 /HPF Urine Squamous Epithelial Cells None seen <5 /hpf Urine Bacteria None seen None Seen /hpf Urine Glucose Normal Normal mg/dL Troponin I High Sensitivity 14 </=54 ng/L Test 03/30/25 13:21 Range/Units White Blood Count 3.9 L 4.4-10.8 10^3/uL Red Blood Count 4.03 L 4.5-5.90 10^6/uL Hemoglobin 12.7 L 13.5-17.5 g/dL Hematocrit 38.6 L 41.0-53.0 % Mean Corpuscular Volume 95.8 80.0-100.0 fL Mean Corpuscular Hemoglobin 31.5 28.0-32.0 pg Mean Corpuscular Hemoglobin Concent 32.9 32.0-36.0 g/dL Red Cell Distribution Width 13.0 11.8-14.3 % Platelet Count 147 140-450 10^3/uL Mean Platelet Volume 8.7 6.9-10.8 fL Neutrophils (%) (Auto) 69.0 37.0-80.0 % Lymphocytes (%) (Auto) 17.2 10.0-50.0 % Monocytes (%) (Auto) 9.3 0.0-12.0 % Eosinophils (%) (Auto) 3.4 0.0-7.0 % Basophils (%) (Auto) 1.1 0.0-2.0 % Neutrophils # (Auto) 2.7 1.6-8.6 10 ^3/uL Lymphocytes # (Auto) 0.7 0.4-5.4 10 ^3/uL Monocytes # (Auto) 0.4 0-1.3 10 ^3/uL Eosinophils # (Auto) 0.1 0-0.8 10 ^3/uL Basophils # (Auto) 0 0-0.2 10 ^3/uL Nucleated Red Blood Cells 0.1 % Sodium Level 143 136-145 mmol/L Potassium Level 3.8 3.5-5.1 mmol/L Chloride Level 112 H 98-107 mmol/L Carbon Dioxide Level 23 20-31 mmol/L Anion Gap 8 5-15 Blood Urea Nitrogen 12 9-23 mg/dL Creatinine 1.15 0.700-1.30 mg/dL Glomerular Filtration Rate Calc 73 >90 mL/min BUN/Creatinine Ratio 10.4 10.0-20.0 Serum Glucose 69 L 74-106 mg/dL Calcium Level 9.2 8.7-10.4 mg/dL Total Bilirubin 0.6 0.2-1.0 mg/dL Aspartate Amino Transferase (AST) 27 13-40 U/L Alanine Aminotransferase (ALT) 27 7-40 U/L Alkaline Phosphatase 116 46-116 U/L Troponin I High Sensitivity 16 </=54 ng/L B-Type Natriuretic Peptide 114.50 0-100 pg/mL Total Protein 6.0 5.7-8.2 g/dL Albumin 3.5 3.2-4.8 g/dL X-Ray, Labs, Meds, VS Comment 60-year-old male with a history of gout, malnutrition and previous diabetes brought in by EMS for evaluation of general weakness, hypotension and hypoglycemia Initial vitals unremarkable Exam remarkable for pallor Rhythm strip independently interpreted by me: Sinus rhythm, rate 60, no ectopy. CT and chest x-ray unremarkable CBC remarkable for WBC 3.9, metabolic panel remarkable for glucose 69, BNP 114.5, 2 serial troponins negative Treated with the following in the ED: 1 L 0.9 normal saline IV bolus Repeat Accu-Chek was 90. On re-evaluation, patient stated he was still feeling weak although blood pressure has improved. Plan is to admit the patient for glucose and blood pressure monitoring, possible neurology evaluation. Case discussed with JAVIER Briseno, who will evaluate the patient. Time of 1ST Reevaluation: 16:06 Reevaluation 1ST: Unchanged Patient Education/Counseling: Diagnosis, Treatment Family Education/Counseling: No Family Present Departure 1 Departure Time of Disposition: 20:25 Impression: Primary Impression: Transient hypotension Additional Impressions: Hypoglycemia Generalized weakness Disposition: ADMITTED INPATIENT Admit to: Tele Condition: Guarded Critical Care Note Critical Care Time?: No Stability Stability form required: No Heart Score Heart Score: Heart Score Response (Comments) Value History N/A 0 EKG N/A 0 Age N/A 0 Risk Factors N/A 0 Troponin N/A 0 Total 0 I personally scribed for JODI MORENO MD ([email or web address]) on 03/30/25 at 16:05. Electronically submitted by Kirk Damon ([email or web address]). JODI MORENO MD March 30, 2025 16:05
[2025-03-30 16:28] LABS: Urine Bacteria None Seen /hpf (None Seen)
[2025-03-30 16:35] LABS: Urine Blood Negative /uL (Negative); Urine Clarity Clear (Clear); Urine Color Yellow (Yellow); Urine Protein, UAD Negative (Negative); Urine Specific Gravity 1.012 (1.001-1.035); Urine Squamous Epithelial Cell None Seen /hpf (<5); Urine Urobilinogen Normal (Negative); Urine WBC 2 /HPF (0-3)
[2025-03-30 19:30] VITALS: PULSE 62; RESP 12; O2SAT 98
[2025-03-30 20:52] VITALS: PULSE 59; RESP 16; O2SAT 97
[2025-03-30] MEDS ORDERED: ONDANSETRON HCL 4 MG/2 ML VIAL IV PRN (22:00)
[2025-03-30] MEDS ORDERED: HYDROcodone-ACET 5/325MG TAB PO PRN (22:00)
[2025-03-30] MEDS ORDERED: DEXTROSE (50%) 50ML SYRG IV PRN (22:00)
[2025-03-30] MEDS ORDERED: NITROGLYCERIN 0.4 MG SL TAB SL PRN (22:00)
[2025-03-30] MEDS ORDERED: DOCUSATE SOD 100 MG CAP PO PRN (22:00)
[2025-03-30] MEDS ORDERED: traZODone HCL 50 MG TAB PO PRN (22:00)
[2025-03-30] MEDS ORDERED: MORPHINE SULFATE INJ 2 MG/ml SYRG IV PRN (22:00)
[2025-03-30] MEDS ORDERED: MECLIZINE HCL 25 MG TAB PO PRN (22:15)
[2025-03-30] MEDS: ATORVASTATIN 20 MG TAB PO SCH (22:20)
[2025-03-30] MEDS: D5W/SOD CHL 0.45% 1,000 ML IV SCH (22:20)
[2025-03-30] MEDS: hydrALAZINE HCL 20 MG/ML VL IV PRN (22:34)
[2025-03-30] MEDS: ACCU-CHEK COMFORT CURVE STRIP VI SCH (23:57)
[2025-03-31] VITALS (16 sets, daily range): BP systolic 130–181; BP diastolic 82–102; PULSE 57–78; RESP 16–19; TEMP 97.7–98.5; O2SAT 97–99
--- NOTE | 2025-03-31 01:12 | DVHHP2 ---
ENMA GARCIA RECORDS MANAGEMENT CLERK 03/31/25 0111: History of Present Illness Reason for Visit: Dizziness History of Present Illness 60-year-old male with past medical history depression, hypertension Presents with complaints of Sudden onset dizziness Times one day. The patient was at physical therapy When he suddenly began to experience generalized weakness with dizziness. EMS Was activated and the patient was found to be hypotensive with the systolic blood pressure in the 70s And to have a low blood sugar level in the 50s. In route to the hospital patient was treated With a normal salene bonus and Amp of d10. Patient denies being diabetic or starting any new medication. There was no LOC or fall. At this time patient denies fevers, chills, Shortness of breath, chest pain, palpitations, Nausea, vomiting. Patient admitted for further evaluation and treatment. Cardiovascular: HTN Endocrine: Hypothyroidism Smoke: No ALCOHOL: none Drugs: None Lives: with Family Review of Systems Constitutional: Yes: Weakness; No: Fever, Chills, Sweats, Malaise, Other Eyes: No: Pain, Vision change, Conjunctivae inflammation, Eyelid inflammation, Other, Redness ENT: No: Ear pain, Ear discharge, Nose pain, Nose discharge, Nose congestion, Mouth pain, Mouth swelling, Throat pain, Throat swelling, Other Respiratory: No: Cough, Dry, Shortness of breath, SOB with excertion, Wheezing, Hemoptysis, Pleuritic Pain, Sputum, Wheezing, Other Cardiovascular: Lt Headedness; No: Chest Pain, Palpitations, Orthopnea, Paroxysmal Noc. Dyspnea, Edema, Other Gastrointestinal: No: Nausea, Vomiting, Abdominal Pain, Diarrhea, Constipation, Melena, Hematochezia, Other Genitourinary: No Dysuria, No Frequency, No Incontinence, No Hematuria, No Retention, No Other Musculoskeletal: No: other, neck pain, shoulder pain, arm pain, back pain, hand pain, leg pain, foot pain Skin: No: Rash, Lesions, Jaundice, Bruising, Other Neurological: Weakness; No: Numbness, Incoordination, Change in speech, Confusion, Seizures, Other Allergies: Coded Allergies: NO KNOWN ALLERGIES (Unverified , 01/24/22) Medications Current Medications Medications Dose Ordered Sig/Daphnie Route Start Time Stop Time Status Last Admin Dose Admin Docusate Sodium 100 mg BIDPRN PRN PO 03/30/25 22:00 Acetaminophen 650 mg Q6HP PRN PO 03/30/25 22:00 Dextrose/Sodium Chloride 1,000 ml @ 100 mls/hr Q10H IV 03/30/25 22:00 03/31/25 07:59 03/30/25 22:20 100 MLS/HR Acetaminophen/ Hydrocodone Bitart 1 tab Q4HP PRN PO 03/30/25 22:00 Ondansetron HCl 4 mg Q4HP PRN IV 03/30/25 22:00 Nitroglycerin 0.4 mg Q5MINP PRN SL 03/30/25 22:00 Morphine Sulfate 2 mg Q30M PRN IV 03/30/25 22:00 Diagnostic Test (Pha) 1 strip IQ4HR 03/31/25 00:00 03/30/25 23:57 1 STRIP Dextrose 50 ml UD PRN IV 03/30/25 22:00 Losartan Potassium 25 mg DAILY PO 03/31/25 10:00 Levothyroxine Sodium 25 mcg DAILY PO 03/31/25 10:00 Trazodone HCl 100 mg HSPRN PRN PO 03/30/25 22:00 Atorvastatin Calcium 10 mg HS PO 03/30/25 22:00 Meclizine HCl 25 mg Q8HPRN PRN PO 03/30/25 22:15 Hydralazine HCl 10 mg Q6HP PRN IV 03/30/25 22:15 03/30/25 22:34 10 MG Exam Vital Signs Vital Signs Date Time Temp Pulse Resp B/P (MAP) Pulse Ox O2 Delivery O2 Flow Rate FiO2 03/31/25 00:00 68 03/30/25 23:00 18 142/77 (98) 97 03/30/25 20:52 Room Air* 0 21 03/30/25 20:42 98.5 98.5 General Appearance: Alert, Oriented X3, Cooperative, No acute distress HEENT: Atraumatic, PERRLA, EOMI Respiratory: Clear to auscultation, Normal air movement Cardiovascular: Regular rate, Normal S1, Normal S2 Abdominal: Normal bowel sounds, Soft, No tenderness Extremities: No clubbing, No cyanosis, No edema Skin: No breakdown Neuro: Normal speech Psych/Mental Status: Mental status NL, Mood NL Labs/Xrays Labs Test 03/30/25 23:58 03/30/25 14:40 03/30/25 14:33 03/30/25 13:21 Range/Units POC Glucose 84 70-106 mg/dl Urine Color Yellow Yellow Urine Clarity Clear Clear Urine pH 6.0 5.0-9.0 Urine Specific [place] 1.012 1.001-1.035 Urine Protein Negative Negative Urine Ketones Negative Negative Urine Blood Negative Negative /uL Urine Nitrite Negative Negative Urine Bilirubin Negative Negative Urine Urobilinogen Normal Negative mg/dL Urine Leukocyte Esterase Negative Negative /uL Urine RBC 11 0 - 3 /hpf Urine Microscopic WBC 2 0-3 /HPF Urine Squamous Epithelial Cells None seen <5 /hpf Urine Bacteria None seen None Seen /hpf Urine Glucose Normal Normal mg/dL Troponin I High Sensitivity 14 </=54 ng/L White Blood Count 3.9 L 4.4-10.8 10^3/uL Red Blood Count 4.03 L 4.5-5.90 10^6/uL Hemoglobin 12.7 L 13.5-17.5 g/dL Hematocrit 38.6 L 41.0-53.0 % Mean Corpuscular Volume 95.8 80.0-100.0 fL Mean Corpuscular Hemoglobin 31.5 28.0-32.0 pg Mean Corpuscular Hemoglobin Concent 32.9 32.0-36.0 g/dL Red Cell Distribution Width 13.0 11.8-14.3 % Platelet Count 147 140-450 10^3/uL Mean Platelet Volume 8.7 6.9-10.8 fL Neutrophils (%) (Auto) 69.0 37.0-80.0 % Lymphocytes (%) (Auto) 17.2 10.0-50.0 % Monocytes (%) (Auto) 9.3 0.0-12.0 % Eosinophils (%) (Auto) 3.4 0.0-7.0 % Basophils (%) (Auto) 1.1 0.0-2.0 % Neutrophils # (Auto) 2.7 1.6-8.6 10 ^3/uL Lymphocytes # (Auto) 0.7 0.4-5.4 10 ^3/uL Monocytes # (Auto) 0.4 0-1.3 10 ^3/uL Eosinophils # (Auto) 0.1 0-0.8 10 ^3/uL Basophils # (Auto) 0 0-0.2 10 ^3/uL Nucleated Red Blood Cells 0.1 % Sodium Level 143 136-145 mmol/L Potassium Level 3.8 3.5-5.1 mmol/L Chloride Level 112 H 98-107 mmol/L Carbon Dioxide Level 23 20-31 mmol/L Anion Gap 8 5-15 Blood Urea Nitrogen 12 9-23 mg/dL Creatinine 1.15 0.700-1.30 mg/dL Glomerular Filtration Rate Calc 73 >90 mL/min BUN/Creatinine Ratio 10.4 10.0-20.0 Serum Glucose 69 L 74-106 mg/dL Calcium Level 9.2 8.7-10.4 mg/dL Total Bilirubin 0.6 0.2-1.0 mg/dL Aspartate Amino Transferase (AST) 27 13-40 U/L Alanine Aminotransferase (ALT) 27 7-40 U/L Alkaline Phosphatase 116 46-116 U/L B-Type Natriuretic Peptide 114.50 0-100 pg/mL Total Protein 6.0 5.7-8.2 g/dL Albumin 3.5 3.2-4.8 g/dL Assessment/Plan Assessment/Plan Near Syncope Dizziness Hypoglycemia Plan Admit to telemetry Consult cardiology. Echocardiogram. Orthostatic vital signs. IVF D5.45NS @ 100ml/hr x 1liter Monitor blood glucose with Accu checks Q4 hours x4 Physical therapy evaluation GI ppx protonix / DVT ppx scd Plan discussed with: Patient My Orders Orders - ENMA GARCIA NP Procedure Category Date Status Time Admit ADMIT 03/30/25 Transmitted 21:53 Code Status CODE 03/30/25 Transmitted 21:53 Vital Signs EMILI 03/30/25 In Process 21:53 Review Orders With EMILI 03/30/25 In Process 21:53 Encourage Activity As EMILI 03/30/25 In Process Tolerate 21:53 Regular Diet DIET 03/31/25 Transmitted Breakfast Oxygen By Face Mask RT 03/30/25 Transmitted 21:53 Docusate Sodium PHA 03/30/25 In Process Capsule (Colace 22:00 Basic Metabolic Panel LAB 03/31/25 Logged 05:00 Basic Metabolic Panel LAB 04/01/25 Verified 05:00 Basic Metabolic Panel LAB 04/02/25 Verified 05:00 Complete Blood Count LAB 03/31/25 Logged 05:00 Complete Blood Count LAB 04/01/25 Verified 05:00 Complete Blood Count LAB 04/02/25 Verified 05:00 D5w/Sod Chl 0.45% PHA 03/30/25 In Process (D5w 1/2ns) 22:00 Patient Condition ORDERS 03/30/25 Transmitted 21:53 Allergies EMILI 03/30/25 In Process 21:53 Hydrocodone-Acet PHA 03/30/25 In Process 5/325mg Tab ([place] 22:00 Ondansetron Hcl PHA 03/30/25 In Process (Zofran) 22:00 Sequential EMILI 03/30/25 In Process Compression Device Nitroglycerin PHA 03/30/25 In Process Sublingual (Ntrostat 22:00 Morphine Sulfate PHA 03/30/25 In Process Injection 22:00 Stat Ekg For Chest EMILI 03/30/25 In Process Pain 21:53 Notify Of Changes EMILI 03/30/25 In Process From Base 21:53 Sane Nurse For EMILI 03/30/25 In Process 24 Hours 21:53 Emergency Dysrhythmia EMILI 03/30/25 In Process Protocol 21:53 Rhythm Strips Once EMILI 03/30/25 In Process Every Shift 21:53 Oxygen By Nasal RT 03/30/25 Transmitted Cannula 21:53 Glucose Blood PHA 03/31/25 In Process (Accu-Chek Comfort 00:00 Dextrose 50% Syringe PHA 03/30/25 In Process 22:00 Accucheck BD 03/30/25 Transmitted 22:00 Accucheck BD 03/31/25 Transmitted 02:00 Accucheck BD 03/31/25 Transmitted 06:00 Accucheck BD 03/31/25 Transmitted 10:00 Accucheck BD 03/31/25 Transmitted 14:00 Orthostatic Vital ORDERS 03/31/25 Transmitted Signs 08:00 Orthostatic Vital ORDERS 03/31/25 Transmitted Signs 20:00 Orthostatic Vital ORDERS 04/01/25 Transmitted Signs 08:00 Orthostatic Vital ORDERS 04/01/25 Transmitted Signs 20:00 * Cardiology Consult CONS 03/30/25 Transmitted 21:53 Losartan Tablet PHA 03/31/25 In Process (Cozaar Tablet) 10:00 Levothyroxine Tablet PHA 03/31/25 In Process (Synthroid Tablet) 10:00 Trazodone Hcl PHA 03/30/25 In Process (Desyrel) 22:00 Atorvastatin (Lipitor) PHA 03/30/25 In Process 22:00 Acetaminophen Tablet PHA 03/30/25 In Process (Tylenol Tablet) 22:00 Notify Of Changes EMILI 03/30/25 Verified From Base 21:53 Advance Directive EMILI 03/30/25 Verified 21:53 Echo 2d Mode Cardiac US 03/30/25 Verified DOP 21:53 Meclizine Tablet PHA 03/30/25 In Process (Antivert Tablet) 22:15 Hydralazine Injection PHA 03/30/25 In Process (Apresoline Inject 22:15 Date of Service: March 31, 2025 Billing Provider: JCAKI RAMÍREZ MD Common Visit Codes: NOT BILLABLE JACKI RAMÍREZ MD 03/31/25 1008: Review of Systems Allergies: Coded Allergies: NO KNOWN ALLERGIES (Unverified , 01/24/22) Assessment/Plan My Orders Patient's chart is reviewed and discussed with the nurse practitioner. I agree with the nurse practitioner's evaluation, documentation, assessment and care plan as outlined. ENMA GARCIA NP March 31, 2025 01:11 JACKI RAMÍREZ MD March 31, 2025 10:08
[2025-03-31 07:07] LABS: Calcium 9.2 mg/dL (8.7-10.4); Sodium 143 mmol/L (136-145)
[2025-03-31 07:08] LABS: Anion Gap 12 (5-15)
[2025-03-31 07:13] LABS: Blood Urea Nitrogen 13 mg/dL (9-23); Glucose 97 mg/dL (74-106)
[2025-03-31 07:18] LABS: Carbon Dioxide 19 mmol/L (20-31); Chloride 112 mmol/L (98-107)
[2025-03-31 07:33] LABS: Basophils # (auto) 0 10 ^3/uL (0-0.2); Basophils % (auto) 0.7 % (0.0-2.0); Eosinophils # (auto) 0.2 10 ^3/uL (0-0.8); Eosinophils % (auto) 5.2 % (0.0-7.0); Hematocrit 43.5 % (41.0-53.0); Hemoglobin 14.2 g/dL (13.5-17.5); Lymphocytes % (auto) 26.8 % (10.0-50.0); Mean Corpuscular Hemoglobin 31.5 pg (28.0-32.0); Mean Corpuscular Hgb Conc. 32.7 g/dL (32.0-36.0); Mean Corpuscular Volume 96.6 fL (80.0-100.0); Monocytes # (auto) 0.4 10 ^3/uL (0-1.3); Monocytes % (auto) 10.7 % (0.0-12.0); Neutrophils # (auto) 2.1 10 ^3/uL (1.6-8.6); Neutrophils % (auto) 56.6 % (37.0-80.0); Nucleated Red Blood Cells % 0.2 %; Platelet Count (auto) 164 10^3/uL (140-450); Red Cell Distribution Width 13.2 % (11.8-14.3); White Blood Cell 3.7 10^3/uL (4.4-10.8)
[2025-03-31] MEDS: ACETAMINOPHEN 325 MG TAB PO PRN (08:39)
[2025-03-31] MEDS: LOSARTAN POTASSIUM 25 MG TAB PO SCH (09:24)
[2025-03-31] MEDS: LEVOTHYROXINE SODIUM 25 MCG TAB PO SCH (09:24)
[2025-03-31] MEDS: ACCU-CHEK COMFORT CURVE STRIP VI SCH (11:54)
[2025-04-01] VITALS (8 sets, daily range): BP systolic 127–151; BP diastolic 77–90; PULSE 62–70; RESP 17–19; TEMP 36.9; O2SAT 96–99
[2025-04-01 06:26] LABS: Basophils # (auto) 0.1 10 ^3/uL (0-0.2); Basophils % (auto) 1.2 % (0.0-2.0); Eosinophils # (auto) 0.2 10 ^3/uL (0-0.8); Eosinophils % (auto) 4.6 % (0.0-7.0); Hematocrit 37.5 % (41.0-53.0); Hemoglobin 12.6 g/dL (13.5-17.5); Lymphocytes # (auto) 1.2 10 ^3/uL (0.4-5.4); Lymphocytes % (auto) 25.9 % (10.0-50.0); Mean Corpuscular Hgb Conc. 33.5 g/dL (32.0-36.0); Mean Corpuscular Volume 92.5 fL (80.0-100.0); Monocytes # (auto) 0.5 10 ^3/uL (0-1.3); Monocytes % (auto) 10.6 % (0.0-12.0); Neutrophils # (auto) 2.7 10 ^3/uL (1.6-8.6); Neutrophils % (auto) 57.7 % (37.0-80.0); Platelet Count (auto) 162 10^3/uL (140-450); Red Blood Cells 4.05 10^6/uL (4.5-5.90); Red Cell Distribution Width 12.8 % (11.8-14.3); White Blood Cell 4.7 10^3/uL (4.4-10.8)
[2025-04-01 06:39] LABS: Anion Gap 10 (5-15); Carbon Dioxide 24 mmol/L (20-31); Sodium 144 mmol/L (136-145)
[2025-04-01 06:40] LABS: Calcium 9.1 mg/dL (8.7-10.4)
[2025-04-01 06:45] LABS: Blood Urea Nitrogen 12 mg/dL (9-23); Glucose 78 mg/dL (74-106)
[2025-04-01 06:48] LABS: Chloride 110 mmol/L (98-107); Potassium 3.3 mmol/L (3.5-5.1)
--- NOTE | 2025-04-01 12:13 | DVHDS2 ---
Discharge Summary Date of Admission March 30, 2025 at 21:53 Date of Discharge: April 01, 2025 Labs/Diagnostic Data: Laboratory Results Test 04/01/25 11:10 04/01/25 04:50 03/31/25 07:07 03/30/25 14:40 POC Glucose 70 mg/dl (70-106) White Blood Count 4.7 10^3/uL (4.4-10.8) Red Blood Count 4.05 10^6/uL (4.5-5.90) Hemoglobin 12.6 g/dL (13.5-17.5) Hematocrit 37.5 % (41.0-53.0) Mean Corpuscular Volume 92.5 fL (80.0-100.0) Mean Corpuscular Hemoglobin 31.0 pg (28.0-32.0) Mean Corpuscular Hemoglobin Concent 33.5 g/dL (32.0-36.0) Red Cell Distribution Width 12.8 % (11.8-14.3) Platelet Count 162 10^3/uL (140-450) Mean Platelet Volume 8.9 fL (6.9-10.8) Neutrophils (%) (Auto) 57.7 % (37.0-80.0) Lymphocytes (%) (Auto) 25.9 % (10.0-50.0) Monocytes (%) (Auto) 10.6 % (0.0-12.0) Eosinophils (%) (Auto) 4.6 % (0.0-7.0) Basophils (%) (Auto) 1.2 % (0.0-2.0) Neutrophils # (Auto) 2.7 10 ^3/uL (1.6-8.6) Lymphocytes # (Auto) 1.2 10 ^3/uL (0.4-5.4) Monocytes # (Auto) 0.5 10 ^3/uL (0-1.3) Eosinophils # (Auto) 0.2 10 ^3/uL (0-0.8) Basophils # (Auto) 0.1 10 ^3/uL (0-0.2) Nucleated Red Blood Cells 0.0 % Sodium Level 144 mmol/L (136-145) Potassium Level 3.3 mmol/L (3.5-5.1) Chloride Level 110 mmol/L (98-107) Carbon Dioxide Level 24 mmol/L (20-31) Anion Gap 10 (5-15) Blood Urea Nitrogen 12 mg/dL (9-23) Creatinine 1.00 mg/dL (0.700-1.30) Glomerular Filtration Rate Calc 87 mL/min (>90) BUN/Creatinine Ratio 12.0 (10.0-20.0) Serum Glucose 78 mg/dL (74-106) Calcium Level 9.1 mg/dL (8.7-10.4) Urine Color Yellow (Yellow) Urine Clarity Clear (Clear) Urine pH 6.0 (5.0-9.0) Urine Specific [place] 1.012 (1.001-1.035) Urine Protein Negative (Negative) Urine Ketones Negative (Negative) Urine Blood Negative /uL (Negative) Urine Nitrite Negative (Negative) Urine Bilirubin Negative (Negative) Urine Urobilinogen Normal mg/dL (Negative) Urine Leukocyte Esterase Negative /uL (Negative) Urine RBC 11 /hpf (0 - 3) Urine Microscopic WBC 2 /HPF (0-3) Urine Squamous Epithelial Cells None seen /hpf (<5) Urine Bacteria None seen /hpf (None Seen) Urine Glucose Normal mg/dL (Normal) Test 03/30/25 14:33 03/30/25 13:21 Troponin I High Sensitivity 14 ng/L (</=54) Total Bilirubin 0.6 mg/dL (0.2-1.0) Aspartate Amino Transferase (AST) 27 U/L (13-40) Alanine Aminotransferase (ALT) 27 U/L (7-40) Alkaline Phosphatase 116 U/L (46-116) B-Type Natriuretic Peptide 114.50 pg/mL (0-100) Total Protein 6.0 g/dL (5.7-8.2) Albumin 3.5 g/dL (3.2-4.8) Other Laboratory Tests 04/01/25 04:50 Brief Hx & Hospital Course: 60-year-old male with past medical history depression, hypertension Presents with complaints of Sudden onset dizziness Times one day. The patient was at physical therapy When he suddenly began to experience generalized weakness with dizziness. EMS Was activated and the patient was found to be hypotensive with the systolic blood pressure in the 70s And to have a low blood sugar level in the 50s. In route to the hospital patient was treated With a normal salene bonus and Amp of d10. Patient denies being diabetic or starting any new medication. There was no LOC or fall. At this time patient denies fevers, chills, Shortness of breath, chest pain, palpitations, Nausea, vomiting. Patient admitted for further evaluation and treatment. He is admitted and felt his symptoms were related to vasovagal syncope/orthostatic hypotension. Patient is known to have orthostatic hypotension and then one week later blood pressure dropped more than 20 mmHg from supine to standing however not significantly low. Patient received in the hospital IV fluids and hydration. Symptoms resolved. He is back to baseline normal status. Therefore he is being discharged home in stable condition. Patient is also advised to wear Jesus hose/socks thigh-high to improve venous return and prevent further orthostatic hypotension especially when he is doing activities or exercises. Patient's blood sugar is also normal in the hospital. Rest of his workup is also normal. Therefore he is being discharged home today in stable condition. I have talked with the patient regarding his orthostatic blood pressure changes and recommendations as well as outpatient follow up. He has verbalized understanding of these and agree with the care plan as outlined. Condition at Discharge: Stable Final Diagnosis/Problems List Dizziness/orthostatic hypotension now resolved Discharge Disposition: Home Discharge Instruct/Medications Diet: Consistent carbohydrate, Cardiac 2g Na,low cholest Activity: No Restrictions, As Tolerated Follow Up/Referral: Primary care physician next week and referral to mental tester for further evaluation of orthostatic hypotension Medications: Continue home medications Continued Medications: Allopurinol (Allopurinol) 300 Mg Tab 1 TAB PO DAILYPRN for gout Cariprazine HCl (Vraylar) 6 Mg Cap 6 MG PO, CAP Levothyroxine Sodium (Levothyroxine Sodium) 25 Mcg Tab 1 TAB PO DAILYPRN Megestrol Acetate (Megace) 20 Mg Tb 20 MG PO DAILY for 30 Days, #30 TAB Trazodone Hcl (Trazodone Hcl) 150 Mg Tab 1 TAB PO for insomnia per pt Discharge Statement: "Patient was advised to return to the ER or call 911 if any headaches, dizziness, shortness of breath, chest pain, abdominal pain, bleeding, fevers, or worsening of medical condition. Patient was counseled about treatment plan, medications, possible side effects, patientverbalized understanding. All questions were answered to the best of my ability. This discharge took greater then 30 minutes in planning, reviewing documentation, counseling the patient, and discussing with other team members." ASSESSMENT ASSESSMENT Assessment Dizziness/orthostatic hypotension now resolved JACKI RAMÍREZ MD April 01, 2025 12:13
--- NOTE | 2025-04-02 10:32 | ECG ---
[facility] Test Date: 2025-03-30 Test Time: 12:27:19 Pat Name: ENDER HUGGINS Department: ED Room: 0285T Gender: M [employer] Worker: JACKY : 1965 Requested By: EMERGENCY EMERGENCY Order Number: [id number] Reading MD: Measurements Intervals [place] Rate: 62 P: 54 [place]: 198 QRS: 38 QRSD: 120 T: 79 QT: 474 QTc: 482 Interpretive Statements Sinus rhythm Incomplete left bundle branch block Please click the below link to view image of tracing.
[2025-04-02 10:41] LABS: Hepatitis B Surface Antigen Negative (Negative)
[2025-04-02 11:02] LABS: Hepatitis C Antibody Negative (Negative)
== END 2025-04-01 14:35 | disposition home health service (06) | DRG 204 ==
LOC: EDBD 12:25 → ER 12:27 → OVERFLOW 21:53 → TELE-WESTW 03-31 03:21
PROVIDERS: ADMIT Nurse Practitioner Family; ATTEND Nurse Practitioner Family
DX: I95.1 Orthostatic hypotension (principal); E03.9 Hypothyroidism, unspecified; F32.A Depression, unspecified; F41.9 Anxiety disorder, unspecified; M10.9 Gout, unspecified; I10 Essential (primary) hypertension; Z79.891 Long term (current) use of opiate analgesic; Z79.899 Other long term (current) drug therapy; Z98.84 Bariatric surgery status; E16.2 Hypoglycemia, unspecified
CPT/HCPCS: 36415; 70450; 71045; 80048; 80053; 81001; 82962; 83880; 84484; 85025; 86803; 87340; 93005; 93306; 96365; 97163; G0378